=== PATIENT | female | born 1970 ===

== ENCOUNTER 2023-08-24 14:19 | Outpatient (CLI) | payer BC, SELFPAY ==
[2023-08-24 18:08] LABS: Hematocrit 43.1 % (37.0-47.0); Hemoglobin 14.6 g/dL (12.0-15.0); Mean Corpuscular HGB Conc 33.9 g/dl (32-36); Mean Corpuscular Hemoglobin 31.7 pg (26-34); Mean Corpuscular Volume 93.7 fl (80-100); Mean Platelet Volume 10.8 fl (7.4-10.4); Platelet Count Result 369 k/mm3 (150-375); Red Cell Distribution Width 13.2 % (11.5-14.5); White Blood Count 10.8 K/mm3 (4.5-10.0)
[2023-08-24 18:15] LABS: Creatinine Urine 199.9 mg/dL
[2023-08-24 18:20] LABS: MALB Creatinine Ratio 3.9 mg/g (0-30); Microalbumin Urine Random 7.8 mg/L (0-16.7)
[2023-08-24 18:38] LABS: Erythrocyte Sedimentation Rate 9 mm/hr (0-20)
[2023-08-24 18:41] LABS: Vitamin D 25 Hydroxy 94.3 ng/mL
[2023-08-24 20:56] LABS: Alanine Aminotransferase 18 U/L (6-35); Albumin Level 4.7 g/dL (3.5-5.1); Alkaline Phosphatase 44 U/L (38-126); Anion Gap 11 mmol/L (4-12); Aspartate Amino Transferase 42 U/L (14-36); Bilirubin,Total 0.5 mg/dL (0.2-1.3); Blood Urea Nitrogen 17 mg/dL (7-17); Calcium 9.8 mg/dL (8.4-10.2); Carbon Dioxide 26 mmol/L (22-30); Chloride 100 mmol/L (98-107); Cholesterol 236 mg/dL (0-200); Estimated Glomerular Filt Rate > 60; Glucose 108 mg/dL (65-110); HDL Direct 55 mg/dL; Potassium 4.1 mmol/L (3.4-5.0); Sodium 137 mmol/L (137-145); Triglycerides 201 mg/dL (<150)
[2023-08-24 21:04] LABS: Hemoglobin A1C 5.5 % (<5.7)
[2023-08-24 21:07] LABS: LDL Cholesterol Direct 148 mg/dL
[2023-08-24 21:24] LABS: Thyroid Stimulating Hormone < 0.015 uIU/mL (0.465-4.680)
[2023-08-24 22:01] LABS: Folic Acid > 20.0 ng/mL (2.76->20); Vitamin B12 > 1000.0 pg/mL (239-931)
== END 2023-08-24 14:20 | disposition home or self-care (01) ==
LOC: ANHBWCLAB 14:20
PROVIDERS: PCP Nurse Practitioner Adult Health; Visit Provider Nurse Practitioner Adult Health
DX: E11.9 Type 2 diabetes mellitus without complications (principal); M25.50 Pain in unspecified joint; Z13.9 Encounter for screening, unspecified; E55.9 Vitamin D deficiency, unspecified; E07.9 Disorder of thyroid, unspecified
CPT/HCPCS: 36415; 80053; 80061; 82043; 82306; 82565; 82607; 82746; 83036; 84443; 85027; 85652

== ENCOUNTER 2024-02-29 15:17 | Outpatient (CLI) | payer BC, SELFPAY ==
--- OUTSIDE RECORDS SUMMARY | 2024-03-02 19:41 | XMS_ITS ---
Author Organization [facility] Address [address] [place] [address] Care Team Providers Care Clock Maker Name Role Phone Kelsey Bernard Primary Care Provider REASON FOR VISIT REFILL Encounters Encounter Location Date Provider Diagnosis [facility], [facility] - Kelsey Bernard [address] [place] [address] 02/07/2024 Kelsey Bernard Plan Of Treatment No Information Progress Notes * Laila ZIMMERDOB: [birth year] (53 yo F)Acc No.[id number]:02/07/2024 Patient:?Laila ZIMMER :1970???Age:53 Y???Sex:Female Phone: Address:[facility] [place] [address] * true * Date:? Generated for Printi ng/Fakimmieg/eTransmitting on:?03/02/2024 07:41 PM [employer]ITION SERVICES WORKER
--- OUTSIDE RECORDS SUMMARY | 2024-03-02 19:41 | XMS_ITS | Data Portability ---
Author Organization [facility], Main Office Address [address] [place] [address] Assessment No assessment recorded. Plan of Treatment Reminders Order Date Submit Date Provider Last Modified By Organization Details Last Modified Time Details Appointments None recorded. Lab urinalysis, dipstick 2022 023 [facility] [address], [place], [address], 3 14:45:46 vitamin B12, serum 2023 024 [email or web address] Not available 4 08:17:01 folate, serum 2023 024 [email or web address] Not available 4 08:17:01 vitamin D, 25-hydroxy, total, serum 2023 024 [email or web address] Not available 4 08:17:02 HbA1c (hemoglobin A1c), blood 2023 024 [email or web address] Not available 4 08:17:01 lipid panel, serum 2023 024 [email or web address] Not available 4 08:17:01 CMP, serum or plasma 2023 024 [email or web address] Not available 4 08:17:01 CK (creatine kinase), total, serum 2023 024 [email or web address] Not available 4 08:17:01 TSH, serum or plasma 2023 024 [email or web address] Not available 4 08:17:00 Referral None recorded. Procedures None recorded. Surgeries None recorded. Imaging XR, chest, 2 view 2022 023 [facility] [address] , [place], [address], 3 15:54:43 MAMMO, screening, digital, bilateral 2023 024 [email or web address] [address] [facility] [address] , [place], [address], 4 09:49:37 Medication Orders albuterol sulfate HFA 90 mcg/actuati on aerosol inhaler 2022 023 [id number], [address], [place], [address], 3 12:48:34 Zithromax Z-Amado 250 mg tablet 2022 023 [id number], [address], [place], [address], 4 12:15:23 Ozempic 0.25 mg or 0.5 mg (2 mg/3 mL) subcutaneou s pen injector 2022 023 [id number], [address], [place], [address], 3 12:47:45 Patient TargetsNo targets recorded. Patient InstructionsNo instructions recorded. Reason for Referral None Reported. Results Created Date Observation Date Name Description Value Unit Range Abnormal Flag Note LastModifiedBy Organization Detail LastModifiedTime 12/24/1912/23/2022 urina lysis , dipst ick Leukocytes (reference range: negative hong/??l) Negati ve Not Available [facility] [address], [place], [address], 12/23/2022 12:50:46 12/24/19 23 12/23/2022 urina lysis , dipst ick Nitrite (reference rage: negative mg/dl) negati ve Not Available [address] [address], [place], [address], 12/23/2022 12:50:46 12/24/19 23 12/23/2022 urina lysis , dipst ick Urobilinogen (reference range: 0.2-1 mg/dl) 0.2 Not Available [address], [place], [address], 12/23/2022 12:50:46 12/24/19 23 12/23/2022 urina lysis , dipst ick Protein (reference range: negative mg/dl) Negati ve Not Available [address], [place], [address], 12/23/2022 12:50:46 12/24/19 23 12/23/2022 urina lysis , dipst ick pH (reference range: 5-7) 7.0 Not Available [address] [place], [place], [address], 12/23/2022 12:50:46 12/24/19 23 12/23/2022 urina lysis , dipst ick Blood (reference range: negative Wiley/??l) Negati ve Not Available [address] [place], [place], [address], 12/23/2022 12:50:46 12/24/19 23 12/23/2022 urina lysis , dipst ick Specific Eugene (reference range: 1.005-1.030) 1.020 Not Available [address] [place], [place], [address], 12/23/2022 12:50:46 12/24/19 23 12/23/2022 urina lysis , dipst ick Ketone (reference range: negative mg/dl) Negati ve Not Available [address], [place], [address], 12/23/2022 12:50:46 12/24/19 23 12/23/2022 urina lysis , dipst ick Bilirubin (reference range: negative mg/dl) Negati ve Not Available [address], [place], [address], 12/23/2022 12:50:46 12/24/19 23 12/23/2022 urina lysis , dipst ick Glucose (reference range: negative mg/dl) Negati ve Not Available [address], [place], [address], 12/23/2022 12:50:46 12/24/19 23 12/23/2022 urina lysis , dipst ick Appearance Clear Not Available [address] [address], [place], [address], 12/23/2022 12:50:46 12/24/19 23 12/23/2022 urina lysis , dipst ick Color Yellow Not Available [address] [address], [place], [address], 12/23/2022 12:50:46 10/26/19 24 10/26/2023 URINE DRUG SCREE N amphetamines NEGATI VE Amphe tamin e cut off 500 ng/mL Not Available [facility] (Lab) [address] [facility], [place], [address], 10/26/2023 22:26:36 10/26/19 24 10/26/2023 URINE DRUG SCREE N barbiturates NEGATI VE Cynthia turat e cut off 200 ng/mL Not Available [facility] (Lab) [address] [place], [address], 10/26/2023 22:26:36 10/26/19 24 10/26/2023 URINE DRUG SCREE N benzodiazepi karen POSITI VE abnormal Benzo diaze pine cut off 200 ng/mL Not Available [facility] (Lab) [address] [place], [address], 10/26/2023 22:26:36 10/26/19 24 10/26/2023 URINE DRUG SCREE N cocaine NEGATI VE Cocai ne metab olite cut off 150 ng/mL Not Available [facility] (Lab) [address] [place], [address], 10/26/2023 22:26:36 10/26/19 24 10/26/2023 URINE DRUG SCREE N methadone NEGATI VE Metha done cutof f 300 ng/mL . Not Available [facility] (Lab) [address] [place], [address], 10/26/2023 22:26:36 10/26/19 24 10/26/2023 URINE DRUG SCREE N opiates POSITI VE abnormal Opiat e cut off 300 ng/mL Not Available [facility] (Lab) [address] [place], [address], 10/26/2023 22:26:36 10/26/19 24 10/26/2023 URINE DRUG SCREE N phencyclidin e NEGATI VE PCP cut off 25 ng/mL Not Available [facility] (Lab) [address] [place], [address], 10/26/2023 22:26:36 10/26/19 24 10/26/2023 URINE DRUG SCREE N marijuana POSITI VE abnormal Marij uana cut off 50 ng/mL ANY POSIT ARIANNE RESUL TS REPOR ERIC ARE UNCON FIRME D, AND SUCH, SHOUL D BE USED FOR MEDIC AL TREAT MENT PURPO SES ONLY. Not Available [facility] (Lab) [address] [facility], [place], [address], 10/26/2023 22:26:36 08/16/1908/15/2022 CT, abdom en + pelvi s, w/o contr ast No observ ation record ed. [email or web address] [facility] [address], [place], [address], 08/17/2022 10:02:51 10/01/19 XR, chest , 2 view [facility] [address] [facility] [place] [address] [phone] Patien t Name: PRASHANT MORTON Shruthi Access ion #: [id number] Sex: F : 1970 1 Dictat ed By: Bishop Ornelas Attend ing Physic agueda: SANDI DALE Orderi ng Physic agueda: SANDI DALE Exam Date: 2022 11:57 AM Exam Name: XR CHEST 2V Admitt ing Diagno sis(es ): EXAM: XR CHEST 2V INDICA TION: 52 years old Female wheeze COMPAR ADRIANA: None. FINDIN GS: The cardia c silhou ette is normal . There is no pulmon fara edema. The lungs are clear. There is no pneumo john. There is no pneumo thorax . There is no abnorm al foreig n body. IMPRES ANGEL: There is no acute abnorm ality. Electr onical ly Signed by: Bishop Ornelas at 2022 14:52: 26 PM Page 1 [email or web address] [facility] (Imaging) [address] [facility], [place], [address], 09/30/2022 17:27:32 10/01/1909/30/2022 XR, chest , 2 view No observ ation record ed. [email or web address] [facility] [address] [place] [address] , [place], [address], 10/01/2022 09:04:52 05/14/19 24 05/14/2023 XR, chest No observ ation record ed. [email or web address] [address], [address], 05/20/2023 10:41:06 Result Notes None recorded. Problems Name Problem SNOMED Code Status Onset Date Resolution Date Notes Provider Name and Address Organization Details Recorded Time Disorder of shoulder 944201972 Active Not Available [facility] 3 04:14:21 Chronic back pain 588523772 Active Not Available [facility] 3 04:14:21 Backache with radiating pain 721960758 Active Not Available [facility] 3 04:14:21 Congenital hypothyroi dism 743790102 Active Not Available [facility] 3 04:14:21 Chronic anxiety 637808503 Active Not Available [facility] 3 04:14:21 Thyroid nodule 246735546 Active 2022 Not Available [facility] 3 04:14:21 Headache 15916785 Active Not Available [facility] 3 04:14:21 Muscle weakness 91345323 Active Not Available [facility] 3 04:14:21 Mixed hyperlipid emia 689762132 Active Not Available [facility] 3 04:14:21 Shoulder joint pain 751799954 Active Not Available [facility] 3 04:14:21 Eruption 057565701 Active Not Available [facility] 3 04:14:21 Chronic low back pain 132352033 Active Not Available [facility] 3 04:14:21 Low back pain 519117099 Active Not Available [facility] 3 04:14:21 Myalgia/my ositis - multiple 415920670 Active Not Available [facility] 3 04:14:21 Numbness of upper limb 275331513 Active Not Available [employer] 3 04:14:21 Peripheral nerve disease 315890263 Active Not Available [facility] 3 04:14:21 Type 2 diabetes mellitus without complicati on 314343822 Active 2021 Not Available [facility] 3 04:14:21 Multiple joint pain 23725102 Active Not Available [facility] 3 04:14:21 Ulnar neuropathy 174872197 Active Not Available [facility] 3 04:14:21 Chronic pain syndrome 178380883 Active Not Available [facility] 3 04:14:21 Neuropathy 778452615 Active Not Available [facility] 3 04:14:21 Peripheral vascular disease 127002740 Active Not Available [facility] 3 04:14:21 Hypothyroi dism 01120007 Active Not Available [facility] 3 04:14:21 Uncontroll ed type 2 diabetes mellitus 823105018 Active 2021 Not Available [facility] 3 04:14:22 Shoulder pain 89724172 Active Not Available [facility] 3 04:14:22 Anxiety 08625434 Active Not Available [facility] 3 04:14:22 Cough 93248761 Active Not Available [facility] 3 04:14:22 Hyperlipid emia 71069814 Active Not Available [facility] 3 04:14:22 Disorder of bursa of shoulder region 21513209 Active Not Available [facility] 3 04:14:22 Carpal tunnel syndrome 49776438 Active Not Available [facility] 3 04:14:22 Allergic rhinitis 49155070 Active Not Available [facility] 3 04:14:22 Brachial neuritis 50178034 Active Not Available [facility] 3 04:14:22 Skin sensation disturbanc e 73514863 Active Not Available [facility] 3 04:14:22 Fatigue 46976327 Active Not Available [facility] 3 04:14:22 Primary fibromyalg ia syndrome 18948081 Active Not Available [facility] 3 04:14:22 Abdominal pain 30755200 Active 2022 Not Available [employer] 3 04:14:21 Vaginitis 88417162 Active 2022 Not Available [facility] 3 04:14:21 Epigastric pain 99695032 Active 2022 Not Available [facility] 3 04:14:22 Persistent insomnia 007722161 Active 2022 Not Available [facility] 3 04:14:21 Acute urinary tract infection 026592011 Active 2022 Not Available [facility] 3 04:14:21 Pain of bilateral hands 1283257586804 9109 Active 2022 Not Available [facility] 3 04:14:21 Vitamin D deficiency 73401337 Active 2022 Not Available [facility] 3 04:14:21 Menopausal symptom 16478417 Active 2022 Not Available [facility] 3 04:14:21 Hematochez ia 418464420 Active 2022 Not Available [facility] 3 04:14:21 Candidiasi s of mouth 68815428 Active 2022 Not Available [facility] 3 04:14:22 Acute bronchitis with bronchospa sm 90745608 Active 2022 Not Available [facility] 3 04:14:22 Ulcerative colitis 48675534 Active 2022 Not Available [facility] 3 04:14:22 Acute sinusitis 67966041 Active 2022 Sandi Martinez MD [address] [place] [address], [place], [address] , [facility] [employer] [facility] 3 09:30:10 Administra tion of influenza vaccine Active 2022 MARY CARMEN Naylor [address], [place], [address] , [facility] [employer] [facility] 3 15:36:09 Nausea and vomiting 36545763 Active 2022 Sandi Martinez MD [address], [place], [address] , [employer] 3 12:43:34 Rheumatoid arthritis 19021940 Active 2022 Sandi Martinez MD [address], [place], [address] , [employer] 3 12:44:45 Urinary symptoms 071734900 Active 2022 Sandi Martienz MD [address], [place], [address] , [employer] 3 12:50:43 Administra tion of Varicella- zoster vaccine Active 2023 MARY CARMEN Naylor [address], [place], [address] , [employer] 4 12:39:15 Screening for malignant neoplasm of breast Active 2023 MARY CARMEN Naylor [address], [place], [address] , [employer] 4 12:41:02 At increased risk for nutritiona l problem 040307568 Active 2023 MARY CARMEN Naylor [address], [place], [address] , [employer] 4 12:45:38 Problem Notes None recorded. Procedures Surgical History Date Name Laterality Status Provider Name and Address Organization Details Recorded Time 10/01/19 Nebulizer Treatment completed Sandi Martinez MD [address], [place], [address], [employer] 09/30/2022 20:17:07 Carpal tunnel completed Not Available [facility] 04/08/2022 09:13:59 Cholecystectomy completed Not Available [facility] 04/08/2022 09:13:59 delivery completed Not Available [facility] 04/08/2022 09:13:59 Imaging Results Imaging Date Name Status LastModified by Organiz ation Details LastModified Time 08/15/2022 CT, abdomen + pelvis, w/o contrast completed [email or web address] [facility] [address], [place], [address], 08/17/2022 10:02:51 09/30/2022 XR, chest, 2 view completed [email or web address] [facility] ([facility]) [address] [place], [address], 09/30/2022 17:27:32 09/30/2022 XR, chest, 2 view completed [address], [place], [address], 10/01/2022 09:04:52 05/14/2023 XR, chest completed [email or web address] [place], [address], 05/20/2023 10:41:06 Procedure Notes None recorded. Medical Equipment None Reported. Allergies Allergen ID Allergen Name Allergen Category Reaction Reaction Severity Criticality Documentation Date Start Date Code Code System Note Provider Name and Address Organization Details Recorded Time 68039 cyclobenz aprine hydrochlo ride medicatio n rash Not available Not available 04/08/2022 97047 RxNorm Not Available [facility] 3 09:20:05 97468 Cipro medicatio n nausea moderate Not available 04/08/2022 63530 3 RxNorm Not Available [facility] 3 09:20:05 Medications Name Sig Start Date Stop Date Status Note LastModified by Organization Details LastModified Time penicilli n V potassium 250 mg tablet TAKE 1 TABLET BY MOUTH EVERY 6 HOURS WITH MEALS FOR 10 DAYS 06/01 completed Not Available Not Available Not Available medroxypr ogesteron e 10 mg tablet Take 1 tablet every day by oral route at bedtime for 10 days. 01/17 completed Not Available Not Available Not Available fluconazo le 100 mg tablet Take 1 tablet every day by oral route. active Not Available Not Available No t Available buspirone 5 mg tablet Take 1 tablet twice a day by oral route. active Not Available Not Available No t Available nystatin 100,000 unit/mL oral suspensio n Take 5 mL 4 times a day by oral route. active Not Available Not Available No t Available prednison e 10 mg tablet TAKE 4TABS BY MOUTH DAILY X3DAYS, 3TABS DAILY X3DAYS, 2TABS DAILY X3DAYS, 1TAB DAILY X3DAYS 03/26 completed Not Available Not Available Not Available doxycycli ne hyclate 100 mg capsule Take 1 capsule twice a day by oral route. active Not Available Not Available No t Available atorvasta tin 20 mg tablet TAKE 1 TABLET BY MOUTH EVERY DAY 10/01 completed Not Available Not Available Not Available sulfasala zine 500 mg tablet TAKE 1 TABLET BY MOUTH TWICE A DAY FOR 30 DAYS 04/29 completed Not Available Not Available Not Available clindamyc in HCl 300 mg capsule TAKE 1 CAPSULE BY MOUTH EVERY 6 HOURS. active Not Available Not Available No t Available trazodone 50 mg tablet TAKE 1 TABLET BY MOUTH EVERY DAY 2022 active Not Available Not Available Not Avai lable azithromy freddie 250 mg tablet TAKE 2 TABLETS BY MOUTH TODAY, THEN TAKE 1 TABLET DAILY FOR 4 DAYS 06/01 completed Not Available Not Available Not Available ibuprofen 800 mg tablet TAKE 1 TABLET BY MOUTH THREE TIMES A DAY NEEDED 2023 active Not Available Not Available Not Avai lable tizanidin e 4 mg tablet TAKE 1 TABLET BY MOUTH EVERY 6 HOURS NEEDED 08/25 completed Not Available Not Available Not Available fluconazo le 150 mg tablet TAKE 1 TABLET BY MOUTH FOR 1 DOSE active Not Available Not Available No t Available doxepin 25 mg capsule TAKE 1 CAPSULE BY MOUTH EVERYDAY AT BEDTIME active Not Available Not Available No t Available valacyclo vir 1 gram tablet 1 po daily active Not Available Not Available No t Available hydrocodo ne 5 mg-acetam inophen 325 mg tablet TAKE 1 2 TABLETS BY MOUTH ONCE EVERY 4 6 HOURS NEEDED active Not Available Not Available No t Available minocycli ne 100 mg capsule active Not Available Not Available Not Available meloxicam 15 mg tablet TAKE 1 TABLET BY MOUTH EVERY DAY 06/11 completed Rheumato logist d/c Not Available Not Available Not Available ondansetr on HCl 4 mg tablet TAKE 1 TABLET BY MOUTH EVERY 8 HOURS NEEDED active Not Available Not Available No t Available prednison e 20 mg tablet TAKE 1 TABLET BY MOUTH EVERY DAY active Not Available Not Available No t Available medroxypr ogesteron e 5 mg tablet TAKE 1 TABLET BY MOUTH EVERY DAY 2023 active Not Available Not Available Not Avai lable prednison e 5 mg tablet TAKE 1 TABLET BY MOUTH EVERY DAY active Not Available Not Available No t Available penicilli n V potassium 500 mg tablet TK 1 T PO QID TAT 04/20 completed Not Available Not Available Not Available topiramat e 25 mg tablet TAKE 2 TABLETS BY MOUTH TWICE A DAY active Not Available Not Available No t Available metronida zole 500 mg tablet TAKE 1 TABLET BY MOUTH 3 TIMES DAILY FOR 14 DAYS. 06/01 completed Not Available Not Available Not Available phentermi ne 37.5 mg tablet TAKE 1 TABLET BY MOUTH EVERY DAY active Not Available Not Available No t Available acetamino phen 300 mg-codein e 30 mg tablet Take 1 tablet every 4-6 hours by oral route as needed. 01/17 completed Not Available Not Available Not Available chlorthal idone 25 mg tablet Take 1 tablet every day by oral route. 06/11 completed Not Available Not Available Not Available amlodipin e 5 mg tablet TAKE 1 TABLET BY MOUTH EVERY DAY 03/26 completed Not Available Not Available Not Available ciproflox acin 500 mg tablet Take 1 tablet every 12 hours by oral route for 5 days. 09/30 completed Not Available Not Available Not Available sulfameth oxazole 800 mg-trimet hoprim 160 mg tablet TAKE 1 TABLET BY MOUTH EVERY 12 HOURS FOR 5 DAYS 03/26 completed Not Available Not Available Not Available hydrocodo ne 10 mg-acetam inophen 325 mg tablet TAKE 1 TABLET BY MOUTH EVERY 8 HOURS NEEDED FOR PAIN active Not Available Not Available No t Available leflunomi de 20 mg tablet TAKE 1 TABLET BY MOUTH EVERY DAY active Not Available Not Available No t Available tramadol 50 mg tablet TAKE 1 TO 2 TABLETS BY MOUTH EVERY 6 HOURS NEEDED 06/11 completed Not Available Not Available Not Available amitripty line 50 mg tablet TAKE 1 TABLET BY MOUTH DAILY AT BEDTIME 04/20 completed Not Available Not Available Not Available triamtere ne 37.5 mg-hydroc hlorothia zide 25 mg capsule active Not Available Not Available Not Available amoxicill in 500 mg tablet Take 1 tablet every 8 hours by oral route for 10 days. 03/26 completed Not Available Not Available Not Available simvastat in 40 mg tablet TAKE 1 TABLET BY MOUTH EVERY DAY 06/22 completed Not Available Not Available Not Available alprazola m 0.5 mg tablet TAKE 1 TABLET BY MOUTH EVERY DAY active Not Available Not Available No t Available amoxicill in 875 mg tablet TAKE 1 TABLET BY MOUTH EVERY 12 HOURS 06/01 completed Not Available Not Available Not Available alprazola m 0.25 mg tablet TAKE 1 TABLET BY MOUTH THREE TIMES A DAY NEEDED active Not Available Not Available No t Available estradiol 1 mg tablet TAKE 1 TABLET BY MOUTH EVERY DAY 08/25 completed Not Available Not Available Not Available methotrex ate sodium 2.5 mg tablet TAKE 6 TABLETS BY MOUTH ONCE A WEEK FOR 30 DAYS 03/26 completed Not Available Not Available Not Available amitripty line 10 mg tablet active Not Available Not Available No t Available meclizine 25 mg tablet Take 1 tablet 3 times a day by oral route. 03/26 completed Not Available Not Available Not Available Soma 350 mg tablet Take 1 tablet 4 times a day by oral route as needed. 06/22 completed Not Available Not Available Not Available benzonata te 100 mg capsule Take 1 capsule 3 times a day by oral route. 04/28 completed Not Available Not Available Not Available levothyro xine 50 mcg tablet TAKE 1 TABLET BY MOUTH EVERY DAY active Not Available Not Available No t Available hydrocodo ne 7.5 mg-acetam inophen 325 mg tablet TAKE 1 TABLET BY MOUTH EVERY 6 HOURS 06/01 completed Not Available Not Available Not Available pantopraz ole 40 mg tablet,de layed release TAKE 1 TABLET BY MOUTH EVERY DAY active Not Available Not Available No t Available cyanocoba zachery (vit B-12) 1,000 mcg/mL injection solution INEJECT 1 ML UNDER THE SKIN IN THE MORNING ONCE WEEKLY active Not Available Not Available No t Available gabapenti n 300 mg capsule 1 po TID active Not Available Not Available Not Available omeprazol e 20 mg capsule,d elayed release TAKE 1 CAPSULE BY MOUTH EVERY DAY active Not Available Not Available No t Available folic acid 1 mg tablet TAKE 1 TABLET BY MOUTH EVERY DAY active Not Available Not Available No t Available etodolac 400 mg tablet TAKE 1 TABLET BY MOUTH TWICE A DAY FOR 30 DAYS 03/26 completed Not Available Not Available Not Available monteluka st 10 mg tablet TAKE 1 TABLET BY MOUTH EVERY DAY active Not Available Not Available No t Available hydroxyzi ne HCl 25 mg tablet Take 1 tablet 4 times a day by oral route. active Not Available Not Available No t Available hydrocodo ne 5 mg-acetam inophen 500 mg tablet active Not Available Not Available Not Available hydrochlo rothiazid e 25 mg tablet TAKE 1 TABLET BY MOUTH ONCE DAILY active Not Available Not Available No t Available zolpidem 5 mg tablet TAKE 1 TABLET BY MOUTH EVERYDAY AT BEDTIME *15 TABS/25 DAYS PER INSURANC E* 03/26 completed Not Available Not Available Not Available estradiol 0.5 mg tablet TAKE 1 TABLET BY MOUTH EVERY DAY 2023 active Not Available Not Available Not Avai lable clobetaso l 0.05 % topical ointment APPLY THIN COAT TO AFFECTED AREA TWICE A DAY UNTIL IRRITATI ON RESOLVED , THEN NEEDED active Not Available Not Available No t Available nystatin 100,000 unit/gram topical powder 06/11 completed Not Available Not Available Not Available ibuprofen 600 mg tablet TAKE 1 TABLET BY MOUTH 3 TIMES A DAY 07/06 completed Not Available Not Available Not Available levofloxa freddie 500 mg tablet TAKE 1 TABLET BY MOUTH DAILY FOR 14 DAYS 09/30 completed Not Available Not Available Not Available methylpre dnisolone 4 mg tablets in a dose pack TAKE 6 TABLETS ON DAY 1 DIRECTED ON PACKAGE AND DECREASE BY 1 TAB EACH DAY FOR A TOTAL OF 6 DAYS 12/27 completed Not Available Not Available Not Available albuterol sulfate HFA 90 mcg/actua tion aerosol inhaler INHALE 2 PUFFS BY MOUTH EVERY 4 HOURS active Not Available Not Available No t Available Unithroid 75 mcg tablet TAKE 1 TABLET BY MOUTH EVERY DAY IN THE MORNING active Not Available Not Available No t Available hydrocodo ne 10 mg-acetam inophen 650 mg tablet TAKE 1-2 TABLETS BY MOUTH EVERY 4-6 HOURS active Not Available Not Available No t Available losartan 100 mg tablet 06/01 completed Not Available Not Available Not Available metformin ER 500 mg tablet,ex tended release 24 hr TAKE 2 TABLETS BY MOUTH EVERY DAY 03/26 completed Not Available Not Available Not Available cholecalc iferol (vitamin D3) 125 mcg (5,000 unit) capsule TAKE 1 CAPSULE BY MOUTH EVERY DAY IN THE MORNING 03/26 completed Not Available Not Available Not Available phentermi ne 37.5 mg capsule one po daily active Not Available Not Available No t Available diazepam 5 mg tablet Take 1 tablet 1 hour prior to MRI, if needed, take 2nd tablet 15 minutes prior 05/04 completed Not Available Not Available Not Available metoclopr amide 10 mg tablet 03/26 completed Not Available Not Available Not Available amoxicill in 875 mg-potass ium clavulana te 125 mg tablet Take 1 tablet every 12 hours by oral route. 03/26 completed Not Available Not Available Not Available Estrace 0.01% (0.1 mg/gram) vaginal cream 1 gram per vagina 2x/week 04/20 completed Not Available Not Available Not Available escitalop emile 10 mg tablet TAKE 1 TABLET BY MOUTH EVERY DAY 08/14 completed Not Available Not Available Not Available ezetimibe 10 mg tablet TAKE 1 TABLET BY MOUTH EVERY DAY 2023 active Not Available Not Available Not Avai lable minocycli ne 100 mg tablet TAKE 1 TABLET BY MOUTH EVERY 12 HOURS active Not Available Not Available No t Available Premarin 0.45 mg tablet Take 1 tablet every day by oral route. 07/06 completed Not Available Not Available Not Available rosuvasta tin 10 mg tablet TAKE 1 TABLET BY MOUTH ONCE DAILY. REPLACES SIMVASTA TIN. 01/02 completed Not Available Not Available Not Available melatonin 1 mg tablet Take by oral route. 08/25 completed Not Available Not Available Not Available Prempro 0.3 mg-1.5 mg tablet Take 1 tablet every day by oral route. 06/20 completed Not Available Not Available Not Available nitrofura ntoin monohydra te/macroc rystals 100 mg capsule Take 1 capsule every 12 hours by oral route for 7 days. 12/08 completed Not Available Not Available Not Available Cymbalta 30 mg capsule,d elayed release Take 1 capsule every day by oral route. 04/18 completed Not Available Not Available Not Available ketorolac 60 mg/2 mL intramusc ular syringe Inject 2 mL every day by intramus cular route. 12/08 completed Not Available Not Available Not Available Lyrica 50 mg capsule Take 1 capsule 3 times a day by oral route. active Not Available Not Available No t Available Lyrica 75 mg capsule active Not Available Not Available Not Available Lyrica 100 mg capsule TAKE 1 CAPSULE BY MOUTH THREE TIMES DAILY active Not Available Not Available No t Available losartan 100 mg-hydroc hlorothia zide 12.5 mg tablet active Not Available Not Available No t Available biotin 5000mg 03/26 completed Not Available Not Available Not Available tramadol ER 100 mg tablet,ex tended release 24 hr TAKE 1 TABLET BY MOUTH EVERY 12 HOURS active Not Available Not Available No t Available hydrochlo rothiazid e 12.5 mg tablet 06/01 completed Not Available Not Available Not Available budesonid e-formote rol HFA 160 mcg-4.5 mcg/actua tion aerosol inhaler TAKE 2 PUFFS BY MOUTH TWICE A DAY 2023 active Not Available Not Available Not Avai lable cholecalc iferol (vitamin D3) 1,250 mcg (50,000 unit) capsule TAKE 1 CAPSULE BY MOUTH ONCE EVERY WEEK. 2024 active Not Available Not Available Not Avai lable mesalamin e ER 0.375 gram capsule,e xtended release 24 hr TAKE 4 CAPSULES BY MOUTH DAILY active Not Available Not Available No t Available Savella 50 mg tablet TAKE 1 TABLET BY MOUTH TWICE A DAY 02/27 completed Not Available Not Available Not Available cholecalc iferol (vitamin D3) 125 mcg (5,000 unit) tablet TAKE 1 TABLET BY MOUTH EVERY DAY IN THE MORNING 03/26 completed Not Available Not Available Not Available Tirosint 75 mcg capsule Take 1 capsule every day by oral route in the morning for 90 days. active Not Available Not Available No t Available BD Insulin Syringe Ultra-Fin e 1 mL 31 gauge x 06/23 USE DIRECTED . ONCE WEEKLY active Not Available Not Available No t Available Hysingla ER 60 mg tablet, crush resistant , extended release Take 1 tablet every 24 hours by oral route. 09/01 completed Not Available Not Available Not Available naloxone 4 mg/actuat ion nasal spray active Not Available Not Available Not Available Ozempic 1 mg/dose (2 mg/1.5 mL) subcutane ous pen injector Inject 1 mg every week by subcutan eous route for 30 days. 07/25 completed Not Available Not Available Not Available Ozempic 0.25 mg or 0.5 mg (2 mg/1.5 mL) subcutane ous pen injector INJECT 0.5MG UNDER THE SKIN ONCE A WEEK FOR 28 DAYS 04/29 completed Not Available Not Available Not Available Dexcom G6 Sensor device USE TO CHECK BLOOD SUGAR 6 TIMES A DAY 2023 active Not Available Not Available Not Avai lable Dexcom G6 Touch Up Carver 03/26 completed Not Available Not Available Not Available Dexcom G6 Transmitt er device active Not Available Not Available No t Available Humira(CF ) Pen 40 mg/0.4 mL subcutane ous kit 06/01 completed Not Available Not Available Not Available Rinvoq 15 mg tablet,ex tended release active Not Available Not Available Not Available FreeStyle Felicia 2 Sensor kit USE DIRECTED . 03/26 completed Not Available Not Available Not Available Ozempic 1 mg/dose (4 mg/3 mL) subcutane ous pen injector INJECT 1 MG UNDER THE SKIN ONCE A WEEK active Not Available Not Available No t Available Ozempic 0.25 mg or 0.5 mg (2 mg/3 mL) subcutane ous pen injector INJECT 0.5 MG ONE TIME PER WEEK active Not Available Not Available No t Available Vitals Date Recorded Body height Body mass index (BMI) Body weight Body temperature Heart rate Oxygen saturation Oxygen saturation in Arterial blood by Pulse oximetry Systolic blood pressure Diastolic blood pressure Provider Name and Address Organization Details Last Updated DateTime 3 162.56 cm 34.5 kg/m2 89828.0 7 g 96.4 [degF] 99 /min 98 % 98 % 126 mm[Hg] 80 mm[Hg] PRUDENCIO Brown [place] [facility] [place] [facility] 3 11:47:33 Date Recorded Body height Body mass index (BMI) Body weight Body temperature Heart rate Oxygen saturation Oxygen saturation in Arterial blood by Pulse oximetry Systolic blood pressure Diastolic blood pressure Provider Name and Address Organization Details Last Updated DateTime 3 162.56 cm 34.2 kg/m2 84343.8 8 g 97.5 [degF] 80 /min 98 % 98 % 122 mm[Hg] 78 mm[Hg] Angelika galvan CMA [facility] [employer] [facility] 3 12:23:58 Date Recorded Body height Body mass index (BMI) Body weight Body temperature Heart rate Oxygen saturation Oxygen saturation in Arterial blood by Pulse oximetry Systolic blood pressure Diastolic blood pressure Provider Name and Address Organization Details Last Updated DateTime 3 162.56 cm 34 kg/m2 96319.2 9 g 97.9 [degF] 92 /min 98 % 98 % 124 mm[Hg] 62 mm[Hg] Le Nash MA [facility] [employer] 3 12:33:41 Date Recorded Body height Body mass index (BMI) Body weight Body temperature Respiratory rate Heart rate Oxygen saturation Oxygen saturation in Arterial blood by Pulse oximetry Systolic blood pressure Diastolic blood pressure Provider Name and Address Organization Details Last Updated DateTime 4 162.56 cm 34.8 kg/m2 85395.2 5 g 97.6 [degF] 16 /min 77 /min 98 % 98 % 120 mm[Hg] 86 mm[Hg] Annalee Delgadillo RN [facility] [employer] [facility] 4 12:20:15 Social History Question Answer Notes LastModified by Organizat ion Details LastModified Time Tobacco Smoking Status Unknown If Ever Smoked Not Available [facility] 04/08/2022 09:13:55 What Is Your Level Of Alcohol Consumption? None [id number] Information not available 04/08/2022 In The 14 Days Before Symptom Onset, Have You Had Close Contact With A Laboratory-confirm ed COVID-19 While That Case Was Ill? No [id number] Information not available 04/08/2022 In The 14 Days Before Symptom Onset, Have You Had Close Contact With A Person Who Is Under Investigation For COVID-19 While That Person Was Ill? No [id number] Information not available 04/08/2022 What Was The Date Of Your Most Recent Tobacco Screening? 06/11/2021 [id number] Information not available 04/08/2022 Sex: Unknown Functional Status None recorded. Mental Status None recorded. Family History Relationship Description Onset Age of this Age Resolved Age Notes LastModified by Organization Details LastModified Time Father Heart disease [id number] Not available 04/08/2022 09:14:00 Father Family history of malignant neoplasm [id number] Not available 04/08/2022 09:14:00 Maternal Grandmother Heart disease [id number] Not available 04/08/2022 09:14:00 Mother Heart disease [id number] Not available 04/08/2022 09:14:00 Mother Diabetes mellitus [id number] Not available 04/08/2022 09:14:00 Medical History Condition Response ARTHRITIS Y EYE PROBLEMS Y HEADACHES/MIGRAINES Y OBESITY Y HYPOTHYROIDISM Y DIABETES, TYPE Y HYPERTENSION Y HIGH CHOLESTEROL / HYPERLIPIDEMIA Y Gynecological HistoryNo gynecological history recorded. Obstetrics History GPAL:G 0 P 0 0 0 0 Immunizations Vaccine Type Date Status Note Provider Nam e and Address Organization Details Recorded Time Influenza, split virus, quadrivalent, PF 3 completed MARY CARMEN Naylor [address], [place], [address], [id number] 11/10/2022 14:54:37 zoster recombinant 4 completed MARY CARMEN Naylor [address], [place], [address], [facility] 06/09/2023 15:30:04 Influenza, split virus, trivalent, preservative 4 completed Not Available [facility] 10/02/2022 04:14:24 Influenza, split virus, quadrivalent, PF 2 completed Not Available [facility] 10/02/2022 04:14:24 Influenza, split virus, quadrivalent, PF 1 completed Not Available [facility] 10/02/2022 04:14:24 Influenza, split virus, quadrivalent, PF 0 completed Not Available [facility] 10/02/2022 04:14:24 Influenza, split virus, trivalent, preservative 4 completed Not Available [facility] 10/02/2022 04:14:24 Past Encounters Encounter ID Performer Location Encounter Start Date Encounter Closed Date Diagnosis/Indication Diagnosis SNOMED-CT Code Diagnosis ICD10 Code Diagnosis Note [id number] [facility] [place] [address] [place] [address] 04/18/2020 00:00:00 04/18/2020 14:59:17 [id number] [facility] [place] [address] [place] [address] 05/28/2020 00:00:00 05/29/2020 06:51:42 [id number] [facility] [place] [address] [place] [address] 08/16/2020 00:00:00 08/17/2020 12:38:55 [id number] [facility] [place] [address] [place] [address] 08/22/2020 00:00:00 08/22/2020 21:52:19 [id number] [facility] [place] [address] [place] [address] 08/29/2020 00:00:00 08/30/2020 06:07:17 [id number] [facility] [place] [address] [place] [address] 10/01/2020 00:00:00 10/02/2020 06:26:45 [id number] [facility] [place] [address] [place] [address] 11/01/2020 00:00:00 11/02/2020 11:38:04 [id number] [facility] [place] [address] [place] [address] 12/27/2020 00:00:00 12/27/2020 15:39:14 [id number] [facility] [address] [facility] [address] [place] [address] 06/11/2021 00:00:00 06/11/2021 17:16:01 [id number] [facility] [place] [address] [place] [address] 06/11/2021 00:00:00 06/11/2021 12:39:01 [id number] [facility] [place] [address] [place] [address] 08/14/2021 00:00:00 08/14/2021 19:37:27 [id number] [facility] [address] [place] [address] 08/26/2021 00:00:00 08/26/2021 10:06:53 [id number] [facility] [address] [place] [address] 10/20/2021 00:00:00 10/20/2021 13:30:24 [id number] [facility] [place] [address] [place] [address] 12/18/2021 00:00:00 12/19/2021 06:01:04 [id number] [facility] [place] [address] [place] [address] 03/12/2022 00:00:00 03/13/2022 06:06:03 [id number] Sandi Martinez MD [facility] [place] [address] [place] [address] 04/29/2022 14:11:50 04/29/2022 15:03:00 Chronic pain syndrome 397291844 G89.4 F/u with rheumatolo gist Abdominal pain 52481190 R10.9 [id number] Sandi Martinez MD [facility] [place] [address] [place] [address] 05/20/2022 12:28:48 05/20/2022 12:59:30 Epigastric pain 74465807 R10.13 Persistent insomnia 1919 21113 G47.09 Chronic low back pain 27 1939540 M54.50 Chronic back pain 527805 002 G89.29 Acute urin fara tract infection 127008270 N39.0 Pt is on cipro continue this. [id number] Sandi Martinez MD [facility] [place] [address] [place] [address] 06/01/2022 14:39:35 06/01/2022 15:29:37 Acute urinary tract infection 649493687 N39.0 Pain of bi lateral hands 7035804024 [id number] M79.641 Pending appt with rheumatolo gist [id number] Sandi Martinez MD [facility] [place] [address] [place] [address] 08/31/2022 11:39:29 08/31/2022 12:10:11 Hematochezia 274990328 K92.1 Possible UC Continue flagyl continue prednisone . F/u with GI. Hospital i npatient stay within past 30 days [id number] 106 Z76.89 [id number] Sandi Martinez MD [facility] [place] [address] [place] [address] [place] [address] 09/30/2022 12:16:34 09/30/2022 12:59:33 Acute bronchitis with bronchospasm 23502145 J20.9 Nebulizer treatment given x 1. Continue prednisone 20 mg daily. Ulcerative colitis 08608 004 K51.90 [id number] MARY CARMEN Naylor [facility] [place] [address] [place] [address] 11/09/2022 11:49:32 11/16/2022 14:35:34 Administration of influenza vaccine 04177600 Z23 [id number] Sandi Martinez MD [facility] [place] [address] [place] [address] 12/23/2022 12:28:36 12/23/2022 12:58:45 Nausea and vomiting 57037196 R11.2 D/t ozempic Rheumatoid arthritis 698 57467 M06.9 F/u with rheumatolo gist in 03/03 has an appt. Type 2 fco betes mellitus without complication 600181246 E11.9 Will decrease ozempic to 0.5 mg weekly and see if this helps the nausea Urinary symptoms 3009744 08 R39.9 [id number] MARY CARMEN Naylor [facility] [place] [address] [facility], [place] [address] 06/02/2023 12:07:42 06/02/2023 13:52:01 Primary fibromyalgia syndrome 99719400 M79.7 Rheumatoid arthritis 698 96979 M06.9 Neuropathy 883980671 G62 .9 Administra tion of viral vaccine 60760158 Z23 Screening for malignant neoplasm of breast 599398786 Z12.39 Hypothyroidism 97546304 E03.9 Hyperlipidemia 05644063 E78.5 Type 2 fco betes mellitus without complication 771872993 E11.9 At [facility] risk for nutritional problem 004716104 Z91.89 Health Concerns Section Related Observation LastModified by Organization Detai ls LastModified Time None Recorded Concern Status LastModified by Organization Details LastModified Time None Recorded Advance Directives Directive None Recorded Payers Encounter Date Sequence Insurance Name Policy Number Policy Hendricks Covered Member ID Hendricks Member ID Guarantor Name 08/31/2022 1 [employer] [id number] Romeo Buschtton [id number] Laila D [place] 09/30/2022 1 [place] [id number] Romeo Wen [place] [id number] Laila D [place] 11/09/2022 1 [place] [id number] Romeo Carver [place] [id number] Laila D [place] 12/23/2022 1 [place] [id number] Romeo Buschtton [id number] Laila D [place] 06/02/2023 1 [place] [id number] Romeo Carver Mes[place] [id number] Laila D [place] Notes Date Note Type Note Provider Name and Address Organization Details Recorded Time 08/31/2022 text/html Here today for f /u of hospitalization. Thinks has UC needs a colonoscopy. Had blood in stool and cramping. The pain still comes and goes. Has a little pain. Going to see Dr. Terrazas 09/14/22 who is GI She has a f/u with food cashier. Sandi Martinez MD [address], [place], [address], [employer] 08/31/2022 19:53:27 09/30/2022 text/html Here today c/o coughing. Going on x 8 days. Wheezing x 4 days. Has sob. Chest hurts and getting a pain on right flank pain. Taking 20 mg of steroids daily. Has had pneumonia x 1 Feels tightness in chest. Taking otc meds. Took pseudoephedrine and no help. Sandi Martinez MD [address], [place], [address], [employer] 09/30/2022 20:18:31 12/23/2022 text/html Here today c/o n ausea x 10 days. Teeth are falling out. Has lost 3 teeth in last month. Needs to see dentist. Is using zofran and this helps. Has a colonoscopy in 1 week. Is on 1 mg of ozempic. She thinks is taking too much of ozempic. It is causing her to be sick. She has RA and seeing a food cashier. She is on Humira and is not helping as of yet. Pt has lots of lower and mid back pain. Sandi Martinez MD [address], [place], [address], [employer] 12/23/2022 22:11:03 06/02/2023 text/html sick 2 weeks ,he art rate high , ER anxiety MARY CARMEN Naylor [address], [place], [address], [employer] 06/09/2023 15:31:30 OBGyn Episode No OBEpisode recorded.
--- OUTSIDE RECORDS SUMMARY | 2024-03-02 19:42 | XMS_ITS | Patient Health Record ---
Author Organization [employer] [facility] Address [address] [place] [address] Care Team Providers Care Director Financial Systems Name Role Phone Kelsey Bernard Primary Care Provider Chhaya Calabrese Unavailable [phone] Migration, Provider Unavailable Unavailable Allergies No Known Allergies Reason For Referral Reason Dr. Addison Agustin [address] [place] [address] Referral Organization [facility], [facility] - Kelsey Bernard Referring Provider First Name Chhaya Referring Provider Last Name Guanakito Referring Provider Speciality Family [facility] ctice Referral Priority Routine Medications Medication SIG (Take, Route, Frequency, Duration) Notes Start Date End Date Status Ezetimibe 10 MG for 90 Days Un known Ozempic (0.25 or 0.5 MG/DOSE) 2 MG/3ML INJECT 0.5 MG ONE TIME PER WEEK for 28 Days Unknown predniSONE 5 MG TAKE 1 TABLET BY MOUTH EVERY DAY for 30 Days Unknown ALPRAZolam 0.5 MG for 23 Days Unknown Losartan Potassium-HCTZ 100-12.5 MG TAKE 1 TABLET BY MOUTH EVERY DAY for 30 Days Unknown HYDROcodone-Ibupro fen 10-200 MG 1 tab(s) orally every 4 hours 08/30/2023 Unknown GVOKE HYPOPEN TWO PACK 1 MG/0.2 ML DIRECTED SUBCUTANEOUSLY ONCE for 90 DAYS *Please review for potential replacement for e-prescription and drug interaction check* 08/30/2023 Unknown Unithroid 50 MCG (0.05 MG) for 30 DAYS *Please review and pick correct strength-formulati on from [employer] options. If intended option is not shown, discontinue and re-order from Quick Search* Unknown Folic Acid 1 MG for 90 Days Un known Leflunomide 20 MG for 90 Days Unknown Problems Problem Type SNOMED Code ICD Code Onset Dates Problem Status W/U Status Risk Notes Problem Autoimmune thyroiditis (52447907) Autoimmune thyroiditis (E06.3) Active confirmed Problem Diabetic peripheral neuropathy associated with type 2 diabetes mellitus (7590992632894) Type 2 diabetes mellitus with diabetic neuropathy, unspecified (E11.40) Active confirmed Problem Hypoglycemia due to type 2 diabetes mellitus (185070442358698 ) Type 2 diabetes mellitus with hypoglycemia without coma (E11.649) Active confirmed Problem Rheumatoid arthritis (16638115) Rheumatoid arthritis, unspecified (M06.9) Active confirmed Problem Dysphagia (56102623) Dysphagia, unspecified (R13.10) Active confirmed Problem Unspecified mononeuropathy of bilateral upper limbs (G56.93) Active confirmed Vital Signs Heart Rate 712 /min 08/30/2023 Blood pressure diastolic 73 mm Hg 08/30/2023 Height 62 in 08/30/2023 Blood pressure systolic 127 mm Hg 08/30/2023 Weight 200.0 lbs 08/30/2023 BMI 36.58 kg/m2 08/30/2023 Encounters Encounter Location Date Provider Diagnosis [id number] [place] [address] 12/25/2023 Provider Migration [facility]- Dr. Arndt [address] [place] [address] 08/30/2023 Chhaya Guanakito Rheumatoid arthritis , unspecified M06.9 ; Type 2 diabetes mellitus with diabetic neuropathy, unspecified E11.40 ; Type 2 diabetes mellitus with hypoglycemia without coma E11.649 ; Other fatigue R53.83 ; Autoimmune thyroiditis E06.3 ; Dysphagia, unspecified R13.10 and Unspecified mononeuropathy of bilateral upper limbs G56.93 [facility] - Kelsey Bernard [address] [place] [address] 09/13/2023 Kelsey Bernard [facility], [facility] - Kelseytamara Bernard [address] [place] [address] 09/20/2023 Kelseytamara Bernard [employer] [facility], [facility] - Kelsey Bernard [address] [place] [address] 12/14/2023 Kelsey Bernard [facility], [facility] - Kelseytamara Bernard [address] [place] [address] 02/07/2024 Kelsey Bernard Assessments Encounter Date Diagnosis (ICD Code) Assessment Notes Treatment Notes Treatment Clinical Notes Section Notes 08/30/2023 Type 2 diabetes mellitus with diabetic neuropathy, unspecified (ICD-10 - E11.40) -Neuropathy worsening to bilateral feet, referral to podiatry. 08/30/2023 Rheumatoid arthritis, unspecified (ICD-10 - M06.9) Assessment: Laila's rheumatoid arthritis was previously managed with Humira and Rinvoq, the latter discontinued due to insurance issues. Reports significant symptom relief with Rinvoq. - Plan: Explore options to reinstate Rinvoq or an alternative medication covered by insurance. Coordinate with rheumatology for ongoing management and potential reintroduction of effective therapy. 08/30/2023 Type 2 diabetes mellitus with hypoglycemia without coma (ICD-10 - E11.649) -Discussed with pt at length insulin sensitizing food and incorporating protein into her diet even with her not having much of an appetite on Ozempic, important for her to have consistent protein intake throughout the day. -Will rx her Gvoke pen for rescue hypoglycemia events. Schedule regular follow-up appointments to monitor treatment effectiveness and side effects. Adjust treatment as necessary based on symptoms and lab results. Encourage a balanced diet and regular blood glucose monitoring with her Dexcom device. 08/30/2023 Other fatigue (ICD-10 - R53.83) -Will check labwork to determine if thyroid is related issue 08/30/2023 Autoimmune thyroiditis (ICD-10 - E06.3) -Will check her thyroid labs, determine if we are going to increase the thyroid dose -We discussed that TSH can be falsely low d/t steroid use Plan: Continue Unithroid at the reduced dose of 50 mcg as per the current prescription. Monitor symptoms and consider further medication adjustment based on follow-up thyroid function tests. 08/30/2023 Dysphagia, unspecified (ICD-10 - R13.10) -Pt provided with US order to complete recheck of her thyroid as it has been 1yr. 08/30/2023 Unspecified mononeuropathy of bilateral upper limbs (ICD-10 - G56.93) elizabeth reports neuropathy, post-accident memory issues, and variable physical activity engagement due to arthritis pain. On multiple medications, including steroids, potentially impacting overall health. - Plan: Review all medications and dosages to optimize treatment. Consider neurology referral for neuropathy and memory issues. Encourage regular, gentle physical activity to manage arthritis symptoms. 08/30/2023 Other QUEST ORDER: CBC, Cmp, iron, tsh, ft3, ft4, vitamin b12 Case discussed with MOISÉS Rae. Agree with plan. Kelsey Bernard MD Plan Of Treatment Pending Test Test Name Order Date thyroid US 08/30/2023 Insurance Providers Payer Name Payer Address Payer Phone Subscriber Number Group Number Insured Name Patient Relationship to Insured Coverage Start Date Coverage End Date [facility] [address] [address] [place] [address] [phone] [id number] Laila Zimmer Self - patient is the insured Medical (General) History Medical History History ICD Code H.B.P HIGH CHOLESTEROL MARY DIABETIES HYPERTENTION
--- OUTSIDE RECORDS SUMMARY | 2024-03-02 19:42 | XMS_ITS | Clinical Summary ---
Author Organization [facility] Address [address] [place] [address] Care Team Providers Care Gear Changer Name Role Phone Pooja Hernández NP Primary Care Provider [phone] Allergies Active Allergy Reactions Criticality Noted Date Comments Ciprofloxacin Nausea And Vomiting,Nausea only Medium 0 05/29/2020 Cyclobenzaprine Rash,Hives Medium 06/13/2019 Cyclobenzaprine Hcl Rash Medium 08/24/2023 Medications biotin 5,000 mcg tablet,chewabl e biotin 5000mg Active ALPRAZolam (XANAX) 0.5 mg tablet alprazolam 0.5 mg tablet Active ezetimibe (ZETIA) 10 mg tablet ezetimibe 10 mg tablet TAKE 1 TABLET BY MOUTH EVERY DAY 07/04/19 20 Active medroxyPROGEST ERone (PROVERA) 5 mg tablet medroxyprogesterone 5 mg tablet TAKE 1 TABLET BY MOUTH EVERY DAY 05/09/19 20 Active nystatin powder nystatin 100,000 unit/gram topical powder Active ondansetron (ZOFRAN) 4 mg tablet ondansetron HCl 4 mg tablet Active pantoprazole DR (PROTONIX) 40 mg EC tablet pantoprazole 40 mg tablet,delayed release Ac tive losartan-hydro CHLOROthiazide (HYZAAR) 100-12.5 mg per tablet Take 1 tablet by mouth daily Active Dexcom G6 Sensor device 08/28/19 23 Active Dexcom G6 Transmitter device USE TO TEST 4 TIMES DAILY 07/16/19 23 Active blood-glucose meter,continuo us (DEXCOM G6 OPERATIONS ENGINEER MISC) see administration instructions. 09/05/19 22 Active cyanocobalamin (Vitamin B-12) 1,000 mcg/mL injection Inject 1 mL (1,000 mcg total) into the muscle as instructed once a week 05/11/19 23 Active omeprazole (PriLOSEC) 20 mg capsule Take 1 capsule (20 mg total) by mouth daily 06/24/19 23 Active BD Insulin Syringe Ultra-Fine 1 mL 31 gauge x 5/16 syringe USE TO INJECT B-12 ONCE WEEKLY FOR 90 DAYS 07/15/19 23 Active estradioL (ESTRACE) 0.5 mg tablet 08/29/19 23 Active HYDROcodone-ac etaminophen (NORCO) 10-325 mg per tablet Take 1-2 tablets by mouth 08/13/19 23 Active clobetasoL (TEMOVATE) 0.05 % ointment Apply topically as needed Active ibuprofen (ADVIL,MOTRIN) 800 mg tablet Take 1 tablet (800 mg total) by mouth 3 (three) times a day as needed 06/08/19 24 Active traZODone (DESYREL) 50 mg tablet Take 1 tablet (50 mg total) by mouth daily 08/17/19 23 Active albuterol HFA (PROVENTIL HFA,VENTOLIN HFA,PROAIR HFA) 90 mcg/actuation inhaler Inhale 2 puffs as needed 07/26/19 24 Active cholecalcifero l (VITAMIN D-3) 50,000 unit capsule Take 1 capsule (50,000 Units total) by mouth once a week 06/10/19 24 Active Ozempic 0.25 mg or 0.5 mg (2 mg/3 mL) pen injector injection Inject under the skin once a week 08/18/19 24 Active Unithroid 50 mcg tablet Take 1 tablet (50 mcg total) by mouth daily 11/02/19 24 Active folic acid (FOLVITE) 1 mg tablet TAKE 1 TABLET BY MOUTH EVERY DAY 90 tablet 1 12/13/19 24 Active predniSONE (DELTASONE) 5 mg tablet Take 1 tablet (5 mg) by mouth daily 30 tablet 1 12/16/19 24 Active leflunomide (ARAVA) 20 mg tablet TAKE 1 TABLET BY MOUTH EVERY DAY 90 tablet 1 01/21/20 24 Active sulfaSALAzine EN (AZULFIDINE EN) 500 mg EC tablet Take 3 tablets (1,500 mg total) by mouth 2 (two) times a day 540 tablet 1 01/28/20 24 2024 Active Active Problems Problem Noted Date Diagnosed Date Seronegative inflammatory arthritis 04/14/2023 Assessment & Plan (01/30/2024 4:18 PM TAPPET ADJUSTER): Acutely flared. Currently just on prednisone 5 mg daily and leflunomide 20 mg daily. Was on Humira, was receiving [employer] patient assistance, then switched to Rinvoq, which was helping a lot. Back on it and giving her samples, but she does not feel like it is helping quite as much as she would like. Given her co-existing UC, when we are able to submit for Rinvoq through insurance again, likely mid February 2024, will look at 30 mg daily dosing given her IBD. Stop mesalamine, she does not find that helpful. Start SSZ, working up to dose of 1000 mg BID. Reach out with any flares. Assessment & Plan (12/13/2023 5:43 AM TAPPET ADJUSTER): Acutely flared. Currently just on prednisone 5 mg daily and leflunomide 20 mg daily. Was on Humira, was receiving [employer] patient assistance, then switched to Rinvoq, which was helping a lot. Was helping her pain and her GI symptoms. Had some issue with coverage, they were requesting close to $4000/year even though she had met her deductible. Not sure why she has this cost without insurance change or income change. We are going to provide Rinvoq samples through the end of the year and then see how that looks in the new year. I think it may have been an insurance glitch. If not, then will look into Actemra. Assessment & Plan (08/24/2023 1:32 PM CDT): Acutely flared. Currently just on prednisone 5 mg daily. Was on Humira, was receiving [employer] patient assistance, then switched to Rinvoq, which was helping a lot. Was helping her pain and her GI symptoms. Had some issue with coverage, they were requesting close to $4000/year even though she had met her deductible. Not sure why she has this cost without insurance change or income change. We are going to call [employer] and see if we can better understand. May need to look into Enbrel and possibly coverage through [employer]. Start leflunomide 20 mg daily with careful monitoring of liver enzymes. Assessment & Plan (04/14/2023 6:55 AM TAPPET ADJUSTER): Still with persistent swelling and joint pain. Still following with GI and on mesalamine. Better since addition of Humira, but thinks she could be doing better. Will switch to Rinvoq. Discussed side effects of Lazaro inhibition and patient willing to proceed. Look into insurance coverage. High risk medication use 04/14/2023 Assessment & Plan (01/28/2024 11:50 AM TAPPET ADJUSTER): Patient is on immunosuppressive medication requiring intensive lab monitoring for medication safety. Has standing orders for CBC, CMP, ESR, CRP. Assessment & Plan (12/13/2023 5:44 AM TAPPET ADJUSTER): Patient is on immunosuppressive medication requiring intensive lab monitoring for medication safety. Has standing orders for CBC, CMP, ESR, CRP. Assessment & Plan (08/24/2023 1:30 PM CDT): Patient is on immunosuppressive medication requiring intensive lab monitoring for medication safety. Check labs one month after starting on leflunomide. Reprinted old orders that were never completed for CBC, CMP, ESR, CRP. Assessment & Plan (04/14/2023 6:54 AM TAPPET ADJUSTER): Patient is on immunosuppressive medication requiring intensive lab monitoring for medication safety. Check labs one month after starting on Rinvoq. Encounters Date Type Department Care Team Description 03/01/2024 Telephone [facility] Rhe[facility]ology at [address] [address] Yuki Mckoy, DO Advice Only 02/29/2024 Telephone [facility] Rheumatology at [address] [place] [address] Yuki Mckoy, DO Hydrocodone RX 01/28/2024 2:25 PM TAPPET ADJUSTER Lab [place] [id number] [facility] [address] [place] [address] Screening for tuberculosis; Seronegative inflammatory arthritis; High risk medication use 01/28/2024 1:30 PM TAPPET ADJUSTER Office Visit [facility] Rheumatology at [address] [place] [address] Yuki Mckoy, Seronegative inflammatory arthritis (Primary Dx); High risk medication use; Screening for tuberculosis 01/19/2024 Telephone [facility] Rhe[facility]ology at [address] [place] [address] Yuki Mckoy DO Pain/Flare 12/08/2023 3:00 PM CDT Office Visit [facility] Rhe[facility] at [address] [place] [address] Yuki Mckoy DO Seronegative inflammatory arthritis (Primary Dx); High risk medication use 12/02/2023 Telephone [facility] Rhe[facility] at [address] [place] [address] Yuki Mckoy DO Pt Questions from Last 3 Months Immunizations Name Administration Dates Next Due Influenza, Quadrivalent, Spl it, Preservative Free, Intramuscular 11/09/2022,12/19/2021,11/01/2020,12/04 Influenza, Trivalent, Cell Culture-based MDCK, Preservative Free, Antibiotic Free, Intramuscular 10/07/2023 Influenza, Trivalent, IM (MDV) 12/29/2013,2013 ZOSTER Recombinant 12/17/2023,06/02/2023 Medical History Medical History Date Comments Inflammatory arthritis Fibromyalgia Colitis Family History Medical History Relation Name Comments Clotting disorder Father Clotting disorder Mother Inflammatory bowel disease Mother Thyroid disease Mother Lupus Sister Relation Name Status Comments Father Alive Mother Alive Sister Alive Social History Tobacco Use Types Packs/Day Years Used Date Smoking Tobacco: Never Smokeless Tobacco: Never Tobacco Cessation:Counseling Given: Not Answered AUDIT-C Answer Date Recorded Q1: How often do you have a drink containing alcohol? Never 08/28/2022 Q2: How many drinks containi ng alcohol do you have on a typical day when you are drinking? Patient does not drink Q3: How often do you have si x or more drinks on one occasion? Never 08/28/2022 Comments Unknown Sex and Gender Information Value Date Recorded Sex Assigned at Not on file Legal Sex Female 4:23 PM TAPPET ADJUSTER Gender Identity Not on file Sexual Orientation Not on file Obstetrics History Last Filed Vital Signs Vital Sign Reading Time Taken Comments Blood Pressure 132/80 01/28/2024 1:22 PM TAPPET ADJUSTER Pulse 76 01/28/2024 1:22 PM TAPPET ADJUSTER Temperature 36.7 ??C (98.1 ??F) 01/28/2024 1:22 PM CS T Respiratory Rate 18 01/28/2024 1:22 PM TAPPET ADJUSTER Oxygen Saturation 96% 01/28/2024 1:22 PM TAPPET ADJUSTER Inhaled Oxygen Concentration - - Weight 95.7 kg (211 lb) 01/28/2024 1:22 PM TAPPET ADJUSTER Height 157.5 cm (5' 2 ) 01/28/2024 1:22 PM TAPPET ADJUSTER Body Mass Index 38.59 01/28/2024 1:22 PM TAPPET ADJUSTER Plan of Treatment Health Maintenance Due Date Last Done Comments Breast Cancer Screening-Mammogram 1972 Cervical Cancer Screening 1972 Colon Cancer Screening-Colonoscopy 1972 Depression Screening 1972 Hepatitis C Screening 1972 DTaP/Tdap/Td Vaccine (1 - Tdap) 05/19/1983 Hepatitis B Screening 1990 Regular Well Visit/Exam 18-64 1990 Influenza Vaccine Completed 10/07/2023, , 12/19/2021, Additional history exists Zoster Vaccine Completed 12/17/2023, 06/02/2023 Pneumococcal vaccine <65 Aged Out No longer eligible based on patient's age to complete this topic Procedures Procedure Name Priority Date/Time Associated Diagnosis Comments EGFR Routine 01/28/2024 2:36 PM TAPPET ADJUSTER Seronegative inflammatory arthritis High risk medication use CRP (ACUTE PHASE) Routine 01/28/2024 2:3 6 PM TAPPET ADJUSTER Seronegative inflammatory arthritis High risk medication use ERYTHROCYTE SEDIMENTATION RATE Routine 01/28/2024 2:36 PM TAPPET ADJUSTER Seronegative inflammatory arthritis High risk medication use COMPREHENSIVE METABOLIC PANEL Routine 01/28/2024 2:36 PM TAPPET ADJUSTER Seronegative inflammatory arthritis High risk medication use CBC WITHOUT DIFFERENTIAL Routine 01/28/2024 2:36 PM TAPPET ADJUSTER Seronegative inflammatory arthritis High risk medication use TB TEST, QUANTIFERON GOLD Routine 01/28/2024 2:36 PM TAPPET ADJUSTER Screening for tuberculosis from Last 3 Months Results * eGFR (01/28/2024 2:36 PM TAPPET ADJUSTER) eGFR 81 >=60 mL/min/1. 73 m2 Comment: Interpretive Data Reference Interval Normal ?>/= 90 mL/min/1.73m2 Mildly decreased* ? 60 - 89 mL/min/1.73m2 Mildly to moderately decreased ?45 - 59 mL/min/1.73m2 Moderately to severely decreased ??30 - 44 mL/min/1.73m2 Severely decreased ?15 - 29 mL/min/1.73m2 Kidney Failure ?< 15 ??mL/min/1.73m2 *Relative to young adult level Estimated glomerular filtration rate is determined by the 2020 CKD-EPI equation recommended by the National Kidney Foundation (A Unifying Approach to GFR Estimation: Recommendations of the NKF-ASK Task Force on Reassessing the Inclusion of Race in Diagnosing Kidney Disease, JASN 202). The CKD-EPI equation should not be used for patients with unstable renal function and has not been validated in children and those over 70. Current interpretive data was last reviewed 2020. Blood 01/28/2024 2:36 PM TAPPET ADJUSTER 01/28/2024 4:58 PM TAPPET ADJUSTER Yuki Mckoy LAB BLOOD ORDERABLES Final Result [facility] [address] [place] [address] * TB test, quantiferon gold (01/28/2024 2:36 PM TAPPET ADJUSTER) Quantiferon TB Gold Negative Negative [facility] Comment: No interferon-gamma response to M. tuberculosis antigens was detected. Latent infection with M. tuberculosis is unlikely. A single negative result does not exclude infection with M. tuberculosis. In patients at high risk for M.tuberculosis infection, a second test should be considered in accordance with the 2017 ATS/IDSA/CDC Clinical Practice Guidelines for Diagnosis of Tuberculosis in Adults and Children [Lewinsohn MELI et. al. Clin. Infect. Dis. 2017;64(2):111-115]. The reference range for the 'TB1 Ag minus Nil Result' and 'TB2 Ag minus Nil Result' is an Interferon-gamma level <0.35 IU/mL. TB-Nil 0.00 IUnits/mL [facility] TB2-Nil 0.03 IUnits/mL [facility] Mitogen-Nil 9.98 IUnits/mL [facility] NIL 0.02 IUnits/mL [facility] Comment: Test Performed by: [place] [address] Naphthalene Operator Helper: Jakob Zheng Ph.D.; CLIA# [id number] Blood 01/28/2024 2:36 PM TAPPET ADJUSTER 01/29/2024 1:49 PM TAPPET ADJUSTER Yuki Mckoy LAB BLOOD ORDERABLES Final Result [facility] [address] [place] [address] [facility] * Erythrocyte sedimentation rate (01/28/2024 2:36 PM TAPPET ADJUSTER) Pathologist [facility] Erythrocyte sedimentation rate 8 1 - 30 mm/hr Blood 01/28/2024 2:36 PM TAPPET ADJUSTER 01/28/2024 4:01 PM TAPPET ADJUSTER Yuki Mckoy LAB BLOOD ORDERABLES Final Result Performing Organization Address [facility]/ZIP Co de Phone Number [facility] [address] [place] [address] * CBC without differential (01/28/2024 2:36 PM TAPPET ADJUSTER) [facility] WBC 7.3 3.8 - 9.9 K/cumm Hgb 13.2 11.9 - 15.5 g/dL [facility] Hct 40.3 35.6 - 45.5 % [facility] Plt 351 150 - 400 K/cumm [facility] MPV 10.9 9.1 - 12.3 fL [facility] RBC 4.28 3.90 - 5.20 M/cumm [facility] MCV 94.2 81.3 - 96.4 fL [facility] MCH 30.8 27.1 - 33.3 pg [facility] MCHC 32.8 32.3 - 35.7 g/dL [facility] RDW CV 14.0 11.1 - 14.9 % [facility] RDW SD 47.8 35.7 - 48.1 fL [facility] NRBC abs 0.00 0.00 - 0.01 K/cumm [facility] Blood 01/28/2024 2:36 PM TAPPET ADJUSTER 01/28/2024 4:01 PM TAPPET ADJUSTER Yuki Mckoy DO LAB BLOOD ORDERABLES Final Result [facility] [address] [place] [address] * CRP (acute phase) (01/28/2024 2:36 PM TAPPET ADJUSTER) Pathologist [facility] CRP <3.0 <=10.0 mg/L Blood 01/28/2024 2:36 PM TAPPET ADJUSTER 01/28/2024 4:58 PM TAPPET ADJUSTER us Yuki Mckoy DO LAB BLOOD ORDERABLES Final Result [facility] [address] [place] [address] * (ABNORMAL) Comprehensive metabolic panel (01/28/2024 2:36 PM TAPPET ADJUSTER) Sodium 139 135 - 145 mmol/L Potassium, pl 3.6 3.3 - 4.9 mmol/L [facility] Chloride 99 97 - 110 mmol/L [facility] CO2 26 22 - 32 mmol/L [facility] Anion gap 14 2 - 15 mmol/L [facility] BUN 16 6 - 25 mg/dL [facility] Creatinine 0.87 0.60 - 1.10 mg/dL [facility] Glucose 97 70 - 199 mg/dL [facility] Comment: Interpretive Data Fasting glucose >/= 126 mg/dl is diagnostic for diabetes. ?? Fasting is defined as no caloric intake for at least 8 hours. Fasting glucose between 100 mg/dl to 125 mg/dl is diagnostic of prediabetes. In a patient with classic symptoms of hyperglycemia or hyperglycemic crisis, a random glucose >/= 200 mg/dl is diagnostic for diabetes. In the absence of unequivocal hyperglycemia, results should be confirmed by repeat testing. The classification and Diagnosis of Diabetes Diabetes Care 202; 46: S19-S40. Current interpretive data was last revised 2022. Calcium 9.3 8.5 - 10.3 mg/dL [facility] Bilirubin, total 0.4 0.1 - 1.2 mg/dL [facility] Protein, pl 7.0 6.5 - 8.5 g/dL [facility] Albumin 4.6 3.5 - 5.0 g/dL [facility] Alk phos 37(L) 40 - 130 Units/L [facility] ALT 28 7 - 45 Units/L [facility] AST 34 10 - 45 Units/L [facility] Blood 01/28/2024 2:36 PM TAPPET ADJUSTER 01/28/2024 4:58 PM TAPPET ADJUSTER us Yuki Bethany Mckoy DO LAB BLOOD ORDERABLES Final Result [facility] [address] [place] [address] from Last 3 Months Insurance [email or web address] OOS [email or web address] Care Teams Gear Changer Relationship Specialty Start Date End Date Pooja Hernández NP [address] [place] [address] PCP - General Nurse Practitioner 08/24/23
--- OUTSIDE RECORDS SUMMARY | 2024-03-02 19:42 | XMS_ITS | Clinical Summary ---
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 ) Gender Identity Not on file Sexual Orientation Not on file Plan of Treatment Health Maintenance Due Date Last Done Comments DIABETES ANNUAL FOOT EXAM 1990 DIABETES ANNUAL RETINAL EXAM 1990 DIABETES MICROALBUMIN ANNUAL SCREEN 1990 LDL CHOLESTEROL ANNUAL 1990 DTAP/TDAP/TD VACCINES (1 - Tdap) 05/19/1991 HEPATITIS B VACCINES (1 of 3 - 19+ 3-dose series) 05/19/1991 PNEUMOCOCCAL VACCINE 0-64 YE ARS (1 of 2 - PCV) 05/19/1991 CERVICAL CANCER SCREENING 2002 BREAST CANCER SCREENING 2012 COLORECTAL SCREENING 2017 Colorectal Cancer Screening 2017 FIT-DNA Q 3 years 2017 FIT/FOBT Q 1 year 2017 Flex Sig/CT Colonography Q 5 years 2017 DIABETES HBA1C Q 6 MONTHS 04/07/2022 10/08/2021 ZOSTER VACCINE (1 of 2) 2022 INFLUENZA VACCINE (#1) 2023 1, 12/05/2019, 12/29/2013, Additional history exists Insurance [employer] BLUE ACCESS/TRUE BLUE PPO Care Teams Assistant Office Manager Relationship Specialty Start Date End Date Sandi Martinez MD PCP - General Family Practice 11/12/21
--- OUTSIDE RECORDS SUMMARY | 2024-03-02 19:42 | XMS_ITS | Clinical Summary ---
Author Organization [facility] Address [address] [place] [address]. [place], [place] [address] [place] [address] Care Team Providers Care Instrument Shop Supervisor Name Role Phone Sandi aNvarrete MD Primary Care Provider [phone] Allergies Active Allergy Reactions Criticality Noted Date Comments Ciprofloxacin Nausea and Vomiting,Nausea Only Medium 0 05/29/2020 Cyclobenzaprine Hives 08/15/2022 Medications hydroCHLOROthi azide (MICROZIDE) 12.5 MG tablet Take 1 tablet (12.5 mg total) by mouth daily. 30 tablet 3 Active medroxyPROGEST ERone (PROVERA) 5 MG tablet Take 1 tablet (5 mg total) by mouth daily. 10 tablet 3 Active pantoprazole EC (PROTONIX) 40 MG tablet Take 1 tablet (40 mg total) by mouth daily. 30 tablet 3 Active omeprazole (PRILOSEC) 20 MG capsule Take 1 capsule (20 mg total) by mouth daily. 3 Active vitamin D3, cholecalcifero l, 125 mcg capsule Take 1 capsule (125 mcg total) by mouth every morning. 3 Active cyanocobalamin (B-12) 1000 MCG/ML injection Inject 1 mL (1,000 mcg total) into the muscle once a week. 3 Active ezetimibe (ZETIA) 10 MG tablet Take 1 tablet (10 mg total) by mouth daily with lunch. 3 Active levothyroxine (UNITHROID) 75 MCG tablet Take 1 tablet (75 mcg total) by mouth daily with lunch. Active estradiol (ESTRACE) 0.5 MG tablet Take 2 tablets (1 mg total) by mouth daily with lunch. Active metFORMIN ER (GLUCOPHAGE-XR ) 500 MG 24 hr tablet Take 2 tablets (1,000 mg total) by mouth daily with lunch. 3 Active losartan-hydro CHLOROthiazide (HYZAAR) 100-12.5 MG tablet Take 1 tablet by mouth daily with lunch. 3 Active ibuprofen (MOTRIN) 800 MG tablet Take 1 tablet (800 mg total) by mouth 3 (three) times daily as needed. Active HYDROcodone-ac etaminophen (NORCO) 10-325 MG tablet Take 1-2 tablets by mouth every 4 (four) hours as needed. 3 Active Continuous Blood Gluc Streetsweeper Operator (DEXCOM G6 MANAGER OPERATING) Device see administration instructions. 2 Active ALPRAZolam (XANAX) 0.25 MG tablet Take 1 tablet (0.25 mg total) by mouth 3 (three) times daily as needed. Active Biotin 5000 MCG Cap Take 1 tablet by mouth daily. Active OZEMPIC 1 mg/dose injection (PEN) Inject 1 mg into the skin once a week. 3 Active adalimumab (HUMIRA) 40 MG/0.8ML injection Inject 0.8 mLs (40 mg total) into the skin once. Active albuterol sulfate HFA 108 (90 Base) MCG/ACT inhaler INHALE 2 PUFFS EVERY 4 HOURS BY INHALATION ROUTE. Active SYMBICORT 160-4.5 MCG/ACT inhaler Inhale 2 puffs into the lungs 2 (two) times daily. 3 Active mesalamine ER (APRISO) 0.375 g CAPSULE SR 24 HR 24 hr capsule TAKE 4 CAPSULES BY MOUTH EVERY DAY 3 Active ondansetron (ZOFRAN) 4 MG tablet Take 1 tablet (4 mg total) by mouth every 8 (eight) hours as needed. 3 Active predniSONE (DELTASONE) 5 mg tablet TAKE 6 TABS IN AM OF FIRST AND SECOND DAY, THEN DECREASE BY 1 TAB EVERY 2 DAYS UNTIL GONE 3 Active Active Problems Problem Noted Date Diagnosed Date Acute colitis 08/15/2022 Family History Medical History Relation Comments Brain cancer Father Cancer Father Heart Disease Father Stroke Father Diabetes Mother Heart Disease Mother Stroke Mother Relation Status Comments Father Mother Social History Tobacco Use Types Packs/Day Years Used Date Smoking Tobacco: Never Smokeless Tobacco: Never Tobacco Cessation:Counseling Given: No Alcohol Use Standard Drinks/Week Comments Not Currently 0 (1 standard drink = 0.6 oz pur e alcohol) Comments No Sex and Gender Information Value Date Recorded Sex Assigned at Female 08/16/2022 12:33 AM CDT Legal Sex Female 9:32 AM CDT Gender Identity Female 08/16/2022 12:33 AM CDT Sexual Orientation Straight 08/16/2022 12 :33 AM CDT Last Filed Vital Signs Vital Sign Reading Time Taken Comments Blood Pressure 118/67 12/29/2022 9:47 AM FLUME TENDER Pulse 73 12/29/2022 9:47 AM FLUME TENDER Temperature 35.8 ??C (96.5 ??F) 12/29/2022 9:42 AM CS T Respiratory Rate 18 12/29/2022 9:42 AM FLUME TENDER Oxygen Saturation 95% 12/29/2022 9:47 AM FLUME TENDER Inhaled Oxygen Concentration - - Weight 81.2 kg (179 lb) 12/21/2022 4:30 PM FLUME TENDER Height 157.5 cm (5' 2 ) 12/21/2022 4:30 PM FLUME TENDER Body Mass Index 32.74 12/21/2022 4:30 PM FLUME TENDER Plan of Treatment Health Maintenance Due Date Last Done Comments Cervical Cancer Screening Pap Smear (Age 30 to 64) Every 3 Years 1972 Annual Physical 05/19/1975 PHQ-2 (Physician [place]) 1984 Hepatitis C 1990 DTaP, Tdap and Td Vaccines (1 - Tdap) 05/19/1991 Hepatitis B Vaccines (1 of 3 - 19+ 3-dose series) 05/19/1991 Cervical Cancer Screening Pap with HPV Testing (Age 30 to 64) Every 5 Years 2002 Cervical Cancer Screening with HPV 2002 Mammogram Screening 2012 Zoster Vaccines (1 of 2) 2022 COVID-19 Vaccine (1 - season) 2023 Influenza Adult (#1) 2023 11/09/2022, 12/19/2021, 11/01/2020, Additional history exists Colorectal Cancer Screening Colonoscopy (10 Years) 12/29/2032 12/29/2022, 12/29/2022 Meningococcal B Vaccine Aged Out No l onger eligible based on patient's age to complete this topic Meningococcal Vaccine Aged Out No jeremi redd eligible based on patient's age to complete this topic Pneumococcal Vaccine: Pediatrics (0 to 5 Years) and At-Risk Patients (6 to 64 Years) Aged Out No longer eligible based on patient's age to complete this topic RSV Immunizations Under 20 Months Aged Out No longer eligible based on patient's age to complete this topic Goals Goal Patient Goal Type Associated Problems Recent Progress Patient-Stated? Author Patient will return to prior living situation and remain independent in ADLs upon discharge from hospital Lifestyle No Donita Voss RN Procedures Procedure Name Priority Date/Time Associated Diagnosis Comments COLONOSCOPY Routine 12/29/2022 9:07 AM FLUME TENDER from Last 3 Months or Most Recently Relevant to Health Maintenance Insurance Advance Directives * Full Code (Latest Code Status on File) Date Activated Date Inactivated Comments 08/15/2022 11:40 PM 08/17/2022 7:32 PM Care Teams Instrument Shop Supervisor Relationship Specialty Start Date End Date Sandi Navarrete MD [address] [place] [address] PCP - General FAMILY PRACTICE 05/05/22
--- OUTSIDE RECORDS SUMMARY | 2024-03-02 19:42 | XMS_ITS | Referral Summary ---
Author Organization [facility] Address [address] [place] [address] Care Team Providers Care Assembly Line Machine Operator Name Role Phone Pooja Hernández NP Primary Care Provider [phone] Encounters Date Type Department Care Team Description 03/01/2024 Telephone [facility] Rheumatology at [address], [place] [address] Yuki Mckoy DO Advice Only 02/29/2024 Telephone [facility] Rheumatology at [address], [place] [address] Yuki Mckoy DO Hydrocodone RX 01/28/2024 2:25 PM PYTHON ARCHITECT Lab [address] [place] [address] Screening for tuberculosis; Seronegative inflammatory arthritis; High risk medication use 01/28/2024 1:30 PM PYTHON ARCHITECT Office Visit [facility] Rheumatology at [address] [place] [address] Yuki Mckoy DO Seronegative inflammatory arthritis (Primary Dx); High risk medication use; Screening for tuberculosis 01/19/2024 Telephone [facility] Rheumatology at [address], [place] [address] Yuki Mckoy DO Pain/Flare 12/08/2023 3:00 PM CDT Office Visit [facility] Rhe[facility]ology at [facility] [address] [place] [address] Yuki Mckoy DO Seronegative inflammatory arthritis (Primary Dx); High risk medication use 12/02/2023 Telephone [facility] Rheumatology at [place] [address] [facility] [address] [place] [address] Yuki Mckoy DO Pt Questions from Last 3 Months Allergies Active Allergy Reactions Criticality Noted Date [...] 23 Active blood-glucose meter,continuo us (DEXCOM G6 POT BUILDER [facility]) see administration instructions. 09/05/19 22 Active cyanocobalamin (Vitamin B-12) 1,000 mcg/mL injection Inject 1 mL (1,000 mcg total) into the muscle as instructed once a week 05/11/19 23 Active omeprazole (PriLOSEC) 20 mg capsule Take 1 capsule (20 mg total) by mouth daily 06/24/19 23 Active BD Insulin Syringe Ultra-Fine 1 mL 31 gauge x 06/23 syringe USE TO INJECT B-12 ONCE WEEKLY [...] 04/14/2023 Assessment & Plan (01/30/2024 4:18 PM PYTHON ARCHITECT): Acutely flared. Currently just on prednisone 5 [...] flares. Assessment & Plan (12/13/2023 5:43 AM PYTHON ARCHITECT): Acutely flared. Currently just on prednisone 5 [...] income change. We are going to call [employer] and see if we can better understand. May need to look into Enbrel and possibly coverage through [employer]. Start leflunomide 20 mg daily with careful monitoring of liver enzymes. Assessment & Plan (04/14/2023 6:55 AM PYTHON ARCHITECT): Still with persistent swelling and joint pain. Still following with GI and on mesalamine. Better since addition of Humira, but thinks she could be doing better. Will switch to Rinvoq. Discussed side effects of Lazaro inhibition and patient willing to proceed. Look into insurance coverage. High risk medication use 04/14/2023 Assessment & Plan (01/28/2024 11:50 AM PYTHON ARCHITECT): Patient is on immunosuppressive medication requiring intensive lab monitoring for medication safety. Has standing orders for CBC, CMP, ESR, CRP. Assessment & Plan (12/13/2023 5:44 AM PYTHON ARCHITECT): Patient is on immunosuppressive medication requiring intensive [...] CRP. Assessment & Plan (04/14/2023 6:54 AM PYTHON ARCHITECT): Patient is on immunosuppressive medication requiring intensive lab monitoring for medication safety. Check labs one month after starting on Rinvoq. Immunizations Name Administration Dates Next Due Influenza, Quadrivalent, Spl it, Preservative Free, Intramuscular 11/09/2022,12/19/2021,11/01/2020,12/04 Influenza, Trivalent, Cell Culture-based MDCK, Preservative Free, Antibiotic Free, Intramuscular 10/07/2023 Influenza, Trivalent, IM (MDV) 12/29/2013,2013 ZOSTER Recombinant 12/17/2023,06/02/2023 Social History Tobacco Use Types Packs/Day Years [...] on file Legal Sex Female 4:23 PM PYTHON ARCHITECT Gender Identity Not on file Sexual Orientation Not on file Last Filed Vital Signs Vital Sign Reading Time Taken Comments Blood Pressure 132/80 01/28/2024 1:22 PM PYTHON ARCHITECT Pulse 76 01/28/2024 1:22 PM PYTHON ARCHITECT Temperature 36.7 ??C (98.1 ??F) 01/28/2024 1:22 PM CS T Respiratory Rate 18 01/28/2024 1:22 PM PYTHON ARCHITECT Oxygen Saturation 96% 01/28/2024 1:22 PM PYTHON ARCHITECT Inhaled Oxygen Concentration - - Weight 95.7 kg (211 lb) 01/28/2024 1:22 PM PYTHON ARCHITECT Height 157.5 cm (5' 2 ) 01/28/2024 1:22 PM PYTHON ARCHITECT Body Mass Index 38.59 01/28/2024 1:22 PM PYTHON ARCHITECT Plan of Treatment Not on file Procedures Procedure Name Priority Date/Time Associated Diagnosis Comments EGFR Routine 01/28/2024 2:36 PM PYTHON ARCHITECT Seronegative inflammatory arthritis High risk medication use CRP (ACUTE PHASE) Routine 01/28/2024 2:3 6 PM PYTHON ARCHITECT Seronegative inflammatory arthritis High risk medication use ERYTHROCYTE SEDIMENTATION RATE Routine 01/28/2024 2:36 PM PYTHON ARCHITECT Seronegative inflammatory arthritis High risk medication use COMPREHENSIVE METABOLIC PANEL Routine 01/28/2024 2:36 PM PYTHON ARCHITECT Seronegative inflammatory arthritis High risk medication use CBC WITHOUT DIFFERENTIAL Routine 01/28/2024 2:36 PM PYTHON ARCHITECT Seronegative inflammatory arthritis High risk medication use TB TEST, QUANTIFERON GOLD Routine 01/28/2024 2:36 PM PYTHON ARCHITECT Screening for tuberculosis from Last 3 Months Results * eGFR (01/28/2024 2:36 PM PYTHON ARCHITECT) eGFR 81 >=60 mL/min/1. 73 m2 Comment: [...] of Race in Diagnosing Kidney Disease, JASN 2020). The CKD-EPI equation should not be used for patients with unstable renal function and has not been validated in children and those over 70. Current interpretive data was last reviewed 2020. Blood 01/28/2024 2:36 PM PYTHON ARCHITECT 01/28/2024 4:58 PM PYTHON ARCHITECT us Yuki Mckoy DO LAB BLOOD ORDERABLES Final Result Performing Organization Address City/State/[facility] Co sc Phone Number [facility] [address] Department [place] [address] * TB test, quantiferon gold (01/28/2024 2:36 PM PYTHON ARCHITECT) [facility] Quantiferon TB Gold Negative Negative [facility] Comment: No interferon-gamma response to M. tuberculosis antigens was detected. Latent infection with M. tuberculosis is unlikely. A single negative result does not exclude infection with M. tuberculosis. In patients at high risk for M.tuberculosis infection, a second test should be considered in accordance with the 2017 ATS/IDSA/CDC Clinical Practice Guidelines for Diagnosis of Tuberculosis in Adults and Children [Singh GARRISON et. al. Clin. Infect. Dis. 2017;64(2):111-115]. The reference range for the 'TB1 Ag minus Nil Result' and 'TB2 Ag minus Nil Result' is an Interferon-gamma level <0.35 IU/mL. TB-Nil 0.00 IUnits/mL [facility] TB2-Nil 0.03 IUnits/mL [facility] Mitogen-Nil 9.98 IUnits/mL [facility] NIL 0.02 IUnits/mL [facility] Comment: Test Performed by: [facility] [address] [place] [address] Certified Orthotist: Jakob Zheng Ph.D.; CLIA# [id number] Blood 01/28/2024 2:36 PM PYTHON ARCHITECT 01/29/2024 1:49 PM PYTHON ARCHITECT [facility] Mckoy LAB BLOOD ORDERABLES Final Result Performing Organization Address [facility] Co de Phone Number [facility] [address] [place] [address] [facility] * Erythrocyte sedimentation rate (01/28/2024 2:36 PM PYTHON ARCHITECT) Pathologist [facility] [place] Erythrocyte sedimentation rate 8 1 - 30 mm/hr Blood 01/28/2024 2:36 PM PYTHON ARCHITECT 01/28/2024 4:01 PM PYTHON ARCHITECT [facility] LAB BLOOD ORDERABLES Final Result Performing Organization Address [facility] Co de Phone Number [facility] [address] [place] [address] * CBC without differential (01/28/2024 2:36 PM PYTHON ARCHITECT) Pathologist [facility] [place] WBC 7.3 3.8 - 9.9 K/cumm Hgb 13.2 11.9 - 15.5 g/dL [facility] Hct 40.3 35.6 - 45.5 % [facility] Plt 351 150 - 400 K/cumm [facility] MPV 10.9 9.1 - 12.3 fL [facility] RBC 4.28 3.90 - 5.20 M/cumm [facility] MCV 94.2 81.3 - 96.4 fL [facility] MCH 30.8 27.1 - 33.3 pg [facility] MCHC 32.8 32.3 - 35.7 g/dL [facility] RDW CV 14.0 11.1 - 14.9 % [facility] RDW SD 47.8 35.7 - 48.1 fL [facility] NRBC abs 0.00 0.00 - 0.01 K/cumm [facility] Blood 01/28/2024 2:36 PM PYTHON ARCHITECT 01/28/2024 4:01 PM PYTHON ARCHITECT Yuki Mckoy LAB BLOOD ORDERABLES Final Result Performing Organization Address [facility] Co de Phone Number [facility] [address] [facility] [place] [address] * CRP (acute phase) (01/28/2024 2:36 PM PYTHON ARCHITECT) [facility] CRP <3.0 <=10.0 mg/L Blood 01/28/2024 2:36 PM PYTHON ARCHITECT 01/28/2024 4:58 PM PYTHON ARCHITECT Yuki Mckoy DO LAB BLOOD ORDERABLES Final Result Performing Organization Address [facility] Co de Phone Number [facility] [address] [place] [address] * (ABNORMAL) Comprehensive metabolic panel (01/28/2024 2:36 PM PYTHON ARCHITECT) [facility] Sodium 139 135 - 145 mmol/L Potassium, pl 3.6 3.3 - 4.9 mmol/L [facility] Chloride 99 97 - 110 mmol/L [facility] CO2 26 22 - 32 mmol/L [facility] Anion gap 14 2 - 15 mmol/L [facility] BUN 16 6 - 25 mg/dL [facility] Creatinine 0.87 0.60 - 1.10 mg/dL [facility] Glucose 97 70 - 199 mg/dL [facility] Comment: Interpretive Data Fasting glucose >/= 126 [...] 2022. Calcium 9.3 8.5 - 10.3 mg/dL [facility] Bilirubin, total 0.4 0.1 - 1.2 mg/dL [facility] Protein, pl 7.0 6.5 - 8.5 g/dL [facility] Albumin 4.6 3.5 - 5.0 g/dL [facility] Alk phos 37(L) 40 - 130 Units/L [facility] ALT 28 7 - 45 Units/L [facility] AST 34 10 - 45 Units/L [facility] Blood 01/28/2024 2:36 PM PYTHON ARCHITECT 01/28/2024 4:58 PM PYTHON ARCHITECT us Yuki Mckoy DO LAB BLOOD ORDERABLES Final Result [facility] [address] Department [place] [address] from Last 3 Months Insurance [employer] ACCESS [employer] ACCESS OOS [employer] Care Teams Assembly Line Machine Operator Relationship Specialty Start Date End Date Pooja Hernández NP [address] [place] [address] PCP - General Nurse Practitioner 08/24/23
--- OUTSIDE RECORDS SUMMARY | 2024-03-02 19:42 | XMS_ITS | Encounter Summary ---
Author Organization [facility] [employer] [facility] [facility] Address [address] [place] [address] Care Team Providers Care Local Tanker Truck Driver Name Role Phone Sandi Martinez MD Primary Care Provider [phone] Encounter Details Date Type Department Care Team (Late st Contact Info) Description 04/03/1998 Outpatient [place] [address] [facility] [address] [place] [phone] Social History Tobacco Use Types Packs/Day Years Used Date Smoking Tobacco: Never Assessed Comments Unknown Sex and Gender Information Value Date Recorded Sex Assigned at Not on file Legal Sex Female 3:30 AM IT RISK ADVISOR Gender Identity Not on file Sexual Orientation Not on file documented as of this encounter Plan of Treatment Not on file documented as of this encounter Visit Diagnoses Not on filedocumented in this encounter Care Teams Local Tanker Truck Driver Relationship Specialty Start Date End Date Sandi Martinez MD PCP - General Family Practice 11/12/21 documented as of this encounter
--- OUTSIDE RECORDS SUMMARY | 2024-03-02 19:42 | XMS_ITS | Encounter Summary ---
Author Organization [employer] Address 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
--- OUTSIDE RECORDS SUMMARY | 2024-03-02 19:42 | XMS_ITS ---
Author Organization [facility] Address [address] [address] Care Team Providers Care Engineering Equipment Operator Name Role Phone Kelsey Bernard Primary Care Provider Migration, Provider Unavailable Unavailable REAS[facility] VISIT [facility] Encounter Medications Medication SIG (Take, Route, Frequency, Duration) Notes Start Date End Date Status predniSONE 5 MG TAKE 1 TABLET BY [...] e-prescription and drug interaction check* 08/30/2023 Unknown Ezetimibe 10 MG for 90 Days Un known Ozempic (0.25 or 0.5 MG/DOSE) 2 MG/3ML INJECT 0.5 MG ONE TIME PER WEEK for 28 Days Unknown Unithroid 50 MCG (0.05 MG) for 30 DAYS *Please review and pick correct strength[facility]ulati on from [facility] options. If intended option is not shown, discontinue and re-order from Quick Search* Unknown Folic Acid 1 MG for 90 Days Un known Leflunomide 20 MG for 90 Days Unknown Encounters Encounter Location Date Provider Diagnosis [facility] [address] [address] 12/25/2023 Provider Migration Plan Of Treatment No Information Progress Notes * Laila ZIMMERDOB: [birth year] (53 yo F)Acc No.[id number]:12/25/2023 Patient:Laila ROSEN Provider:?Provider Migration :1970???Age:53 Y???Sex:Female D ate:12/25/2023 Phone: Address:[address], [place], [place] Pcp:Kelsey Bernard Subjective: * Chief Complaints: * ???1. Multum To [facility] Con version Encounter. * Medical History:? * Medications:?Unknown Unithro id 50 MCG (0.05 MG) TABLET , Notes to Pharmacist: *Please review and pick correct strength-formulation from [facility] options. If intended option is not shown, discontinue and re-order from Quick Search*, Unknown Folic Acid 1 MG Tablet , Unknown Leflunomide 20 MG Tablet , Unknown Ezetimibe 10 MG Tablet , Unknown Ozempic (0.25 or 0.5 MG/DOSE)(Semaglutide(0.25 or 0.5MG/DOS)) 2 MG/3ML Solution Pen-injector INJECT 0.5 MG ONE TIME PER WEEK , Unknown predniSONE 5 MG Tablet TAKE 1 TABLET BY MOUTH EVERY DAY , Unknown ALPRAZolam 0.5 MG Tablet , Unknown Losartan Potassium-HCTZ 100-12.5 MG Tablet TAKE 1 TABLET BY MOUTH EVERY DAY , Unknown HYDROcodone-Ibuprofen 10-200 MG Tablet 1 tab(s) orally every 4 hours , Unknown GVOKE HYPOPEN TWO PACK 1 MG/0.2 ML SOLUTION DIRECTED SUBCUTANEOUSLY ONCE , Notes to Pharmacist: *Please review for potential replacement for e-prescription and drug interaction check* Objective: * Vitals:? Assessment: Plan: * Treatment: * Billing Information: * Visit Code:? * Procedure Codes:? * Electronic signature of Prov ider Migration on 03/02/2024 at 07:41 PM ASSOCIATE PROPERTY MANAGER Sign off status: Pending * Provider:?Provider Migration Date:?12/24 Generated for Adrian lindsay/Selma/Farhad on:?03/02/2024 07:41 PM ASSOCIATE PROPERTY MANAGER
--- OUTSIDE RECORDS SUMMARY | 2024-03-02 19:42 | XMS_ITS | Patient Health Record ---
Author Organization [facility] Address [address] [facility] [address] [place], [place] [address] Care Team Providers Care Car Body Mechanic Name Role Phone TERRENCE MADSEN Primary Care Provider Unavailab CartySinamckenzie Unavailable [phone] ALLERGIES Allergen (clinical drug ingredient) Drug/Non Drug Allergy documented on EMR Reaction Allergy Type Onset Date Status Flexeril Unknown Drug Allergy Active REASON FOR REFERRAL No Information MEDICATIONS Medication SIG (Take, Route, Frequency, Duration) Notes Start Date End Date Status biotin Active Vitamin B12 Active Hydrocodone Active sulfaSALAzine 500 mg 1 tab(s) orally 2 times a day for 30 day(s) 01/13/2022 Active medroxyPROGESTERone 5 mg 1 tab(s) orally once a day for 10 day(s) Active losartan 100 mg 1 tab(s) orally once a day for 30 day(s) Active levothyroxine 50 mcg (0.05 mg) 1 tab(s) orally once a day for 30 day(s) Active predniSONE 5 mg 3 tabs x4 days, 2 tabs x4 day, and 1 tab x4 days orally once a day for 12 days 01/13/2022 Active ezetimibe 10 mg 1 tab(s) orally once a day for 30 day(s) Active predniSONE 5 mg 6 tablets for 2 days then decrease by 1 tablet every 2 days until misbah orally once a day for 12 days 02/18/2022 Active pantoprazole 40 mg 1 tab(s) orally once a day for 30 day(s) Active metformin HCL ER 500 mg 1 tab orally 2 t imes a day Active Ozempic Active folic acid 1 mg 2 tab(s) orally once a day for 30 days 02/23/2022 Active estradiol 1 mg 1 tab(s) orally once a day for 30 day(s) Active leflunomide 20 mg 1 tab(s) orally once a day for 30 day(s) 02/23/2022 Active ondansetron 4 mg 1 tab(s) orally ever y 8 hours Active tiZANidine 4 mg 2 tab(s) orally ever y 8 hours for 30 day(s) Active SOCIAL HISTORY Sex Assigned At : Social History Observation Description Sex Assigned At Unknown PROBLEMS Problem Type ICD Code Onset Dates Problem Status W/U Status Risk SNOMED Code Notes Problem Low back pain at multiple sites (M54.50) Active confirmed 626723740 Problem Polyarthralgia (M25.50) Active confirmed 34294771 Problem Myalgia (M79.10) Active confirmed 35587 001 Problem Miscarriage (O03.9) Active confirmed 17 178131 Problem Rheumatoid arthritis without rheumatoid factor, multiple sites (M06.09) Active confirmed 427519613 Problem Elevated LFTs (R79.89) Active confirmed 625842427 PLAN OF TREATMENT Pending Test Test Name Order Date AST (SGOT) 09/04/2021 AST (SGOT) 09/24/2021 AST (SGOT) 01/13/2022 Creatinine, Serum 01/13/2022 Creatinine, Serum 09/04/2021 ALT (SGPT) 01/13/2022 ALT (SGPT) 09/24/2021 ALT (SGPT) 09/04/2021 CBC With Differential/Platelet 2 CBC With Differential/Platelet 2 Sed Rate - Westergren 01/13/2022 Sed Rate - Westergren 09/04/2021 C-Reactive Protein, Quant 01/13/2022 Actin (Smooth Muscle) Antibody 2 Mitochondrial (M2) Antibody 04/25/2021 Lupus Anticoagulant Comprehens 2 Anticardiolip Ab, IgA/G/M, Qn 04/25/2021 HOLLY Panel (HOLLY+LISA+Scl 70+SjoSSA+SjoSSB) 04/25/2021 X ray : Hand left- outside order 022 X ray : Hand right- outside order 2021 Acute Hepatitis Panel(DO NOT USE) 2021 Hep B Surface Ab qualatative 04/25/2021 DS DNA-CRITHIDIA IFA W/REFLEX TO TITER-L [facility] 04/25/2021 X ray : Foot Left- outside order 022 X ray : Foot Right- outside order 2021 Lab slip given 07/10/2021 Lab slip given 01/13/2022 Lab slip given 09/04/2021 Lab slip given 09/24/2021 Lab slip given 04/25/2021 Lab slip given 05/07/2021 Urinalysis, Routine 04/25/2021 Insurance Providers Payer Name Payer Address Payer Phone Subscriber Number Group Number Insured Name Patient Relationship to Insured Coverage Start Date Coverage End Date [facility] [address] [place] [address] [id number] ALIS ZIMMER Spouse - patient is the spouse of the insured 1 MEDICAL (GENERAL) HISTORY Medical History History ICD Code diabetes neuropathy depression tension headaches Double vision sinus problems dizziness anxiety swelling of ankles/feet poor appetite indigestion weight gain Kidney stones abnormal pap smear Hot Flashes Surgical History Surgery Date(Month/Year) C section Carpal Tunnel surgery gallbladder surgery
--- OUTSIDE RECORDS SUMMARY | 2024-03-02 19:42 | XMS_ITS | Referral Summary ---
Author Organization [facility] Address [address] [place] [address] Care Team Providers Care Organizational Effectiveness Consultant Name Role Phone Sandi Martinez MD Primary Care Provider [phone] Source Comments [facility],non-owned Affiliates and Associated Physician Practices is amultiple site organization consisting of ambulatory clinics and hospital sitesin [place], [place], [place] and [place]. This disclosure is being madepursuant to the Care Everywhere program and may not contain all information available regarding this patient. Last updated 17.[facility] Allergies Active Allergy Reactions Criticality Noted Date Comments Ciprofloxacin Nausea and/or Vomiting Medium 05/29/2020 Cyclobenzaprine Rash Medium 05/29/2020 Medications * Be aware that medications may not be up to date on this document. Alwaysverify current medications with the patient. Medication Sig Dispensed Refills Start Date End Date Status predniSONE (DELTASONE) 10 MG tablet 3 tabs BID x4 days, 2 tabs BID x3 days, 1 tab BID x3 days then stop 42 tablet 05/29/2020 Active Active Problems No known active problems Social History Tobacco Use Types Packs/Day Years Used Date Smoking Tobacco: Never Smokeless Tobacco: Never Sex and Gender Information Value Date Recorded Sex Assigned at Not on file Gender Identity Not on file Sexual Orientation Not on file Last Filed Vital Signs Vital Sign Reading Time Taken Comments Blood Pressure - - Pulse - - Temperature - - Respiratory Rate - - Oxygen Saturation - - Inhaled Oxygen Concentration - - Weight 85.7 kg (189 lb) 08/14/2020 3:09 PM CDT Height 157.5 cm (5' 2 ) 08/14/2020 3:09 PM CDT Body Mass Index 34.57 08/14/2020 3:09 PM CDT Plan of Treatment Not on file Goals Goal Patient Goal Type Associated Problems Recent Progress Patient-Stated? Author Mobility General No Beatriz Colón RN Note: Expected end date: 02/07/2021 The goal is to maintain or improve your mobility at the optimum level for you. Interventions: Care Teams Organizational Effectiveness Consultant Relationship Specialty Start Date End Date Sandi Martinez MD [address] [place] [address] PCP - General 09/06/20
--- OUTSIDE RECORDS SUMMARY | 2024-03-02 19:42 | XMS_ITS | Clinical Summary ---
Author Organization [facility] Address [address] [place] [address] Care Team Providers Care Food Equipment Service Technician Name Role Phone Sandi Martinez MD Primary Care Provider [phone] Source Comments [facility],non-owned Affiliates and Associated Physician Practices is amultiple site organization consisting of ambulatory clinics and hospital sitesin [place], [place] and [place]. This disclosure is being madepursuant to the Care Everywhere program and may not contain all information available regarding this patient. Last updated 17.[facility] Allergies Active Allergy Reactions Criticality Noted Date [...] 08/14/2020 3:09 PM CDT Plan of Treatment Health Maintenance Due Date Last Done Comments COLOGUARD (AGES 45-75) - COLON CA SCREENING 1972 COLON MONITORING 1972 COLONOSCOPY - COLON CA SCREENING 1972 CT COLONOGRAPHY - COLON CA SCREENING 1972 Colorectal Cancer Screening 1972 FIT - COLON CA SCREENING 1972 FLEX SIG - COLON CA SCREENING 1972 LIPID TESTING 1972 MAMMOGRAM 1972 PAP SMEAR 1972 HIV SCREENING 05/19/1987 HEPATITIS C SCREENING 05/14/1990 DTAP/TDAP/TD VACCINES (1 - Tdap) 05/19/1991 HEPATITIS B VACCINE (1 of 3 - 19+ 3-dose series) 05/19/1991 SCREENING FOR DIABETES 05/29/2020 PNEUMOCOCCAL VACCINE 50+ (1 of 1 - PCV) 2022 ZOSTER VACCINE (1 of 2) 2022 COVID-19 VACCINE (1 - season) 2023 INFLUENZA VACCINE (#1) 2023 2, 11/01/2020, 12/05/2019, Additional history exists DEPRESSION SCREENING 02/09/2024 HIB VACCINE Aged Out No longer eligi ble based on patient's age to complete this topic HPV VACCINE Aged Out No longer eligi ble based on patient's age to complete this topic MENINGOCOCCAL (Group B) VACCINE Aged Out No longer eligible based on patient's age to complete this topic MENINGOCOCCAL VACCINE Aged Out No jeremi redd eligible based on patient's age to complete this topic PNEUMOCOCCAL VACCINE Aged Out No long er eligible based on patient's age to complete this topic Goals Goal Patient Goal Type Associated Problems Recent Progress Patient-Stated? Author Mobility General No Beatriz Coóln, RN Note: Expected end date: 02/07/2021 The goal is to maintain or improve your mobility at the optimum level for you. Interventions: Care Teams Food Equipment Service Technician Relationship Specialty Start Date End Date Sandi Martinez MD [facility] [place] [address] PCP - General 09/06/20
--- OUTSIDE RECORDS SUMMARY | 2024-03-02 19:42 | XMS_ITS ---
Author Organization [facility] Address [address] [place] [address] Care Team Providers Care Ropeman Name Role Phone Kelsey Bernard Primary Care Provider [phone] REASON FOR VISIT extreme hypoglycemia Medications Medication SIG (Take, Route, Frequency, Duration) Notes Start Date End Date Status HYDROCODONE-IBUPROFEN 10 mg-200 mg 1 tab(s) orally every 4 hours 08/30/2023 Unknown GVOKE HYPOPEN TWO PACK 1 mg/0.2 mL as directed subcutaneously once for 90 days PRN for low blood sugar below 50 and symptomatic 08/30/2023 Unknown ALPRAZOLAM 0.5 mg for 23 Days Unknown HYDROCHLOROTHIAZIDE-LOSA RTAN 12.5 mg-100 mg TAKE 1 TABLET BY MOUTH EVERY DAY for 30 Days Unknown PREDNISONE 5 mg TAKE 1 TABLET BY BLANQUITA TH EVERY DAY for 30 Days Unknown OZEMPIC 2 mg/3 mL (0.25 mg or 0.5 mg dose) INJECT 0.5 MG ONE TIME PER WEEK for 28 Days Unknown LEFLUNOMIDE 20 mg for 90 Days Unknown EZETIMIBE 10 mg for 90 Days Un known UNITHROID 50 mcg (0.05 mg) for 30 Days Unknown FOLIC ACID 1 mg for 90 Days Un known Encounters Encounter Location Date Provider Diagnosis [facility] - Kelsey Bernard [address] [place] [address] 12/17/2023 Kelsey Bernard Plan Of Treatment No Information Progress Notes * Laila ZIMMERDOB: [birth year] (53 yo F)Acc No.[id number]:12/17/2023 Progress Notes Patient:?Laila ZIMMER Provider:?Kelsey Bernard MD :1970???Age:53 Y???Sex:Female D ate:12/17/2023 Phone: Address:[address], [place], [facility] Subjective: * Chief Complaints: * ???1. Extreme hypoglycemia. * Medical History:? * Medications:?Unknown UNITHRO ID 50 mcg (0.05 mg) tablet , Unknown FOLIC ACID 1 mg tablet , Unknown LEFLUNOMIDE 20 mg tablet , Unknown EZETIMIBE 10 mg tablet , Unknown OZEMPIC 2 mg/3 mL (0.25 mg or 0.5 mg dose) solution INJECT 0.5 MG ONE TIME PER WEEK , Unknown PREDNISONE 5 mg tablet TAKE 1 TABLET BY MOUTH EVERY DAY , Unknown ALPRAZOLAM 0.5 mg tablet , Unknown HYDROCHLOROTHIAZIDE-LOSARTAN 12.5 mg-100 mg tablet TAKE 1 TABLET BY MOUTH EVERY DAY , Unknown HYDROCODONE-IBUPROFEN 10 mg-200 mg tablet 1 tab(s) orally every 4 hours , Unknown GVOKE HYPOPEN TWO PACK 1 mg/0.2 mL solution as directed subcutaneously once PRN for low blood sugar below 50 and symptomatic Objective: * Vitals:? Assessment: Plan: * Treatment: * Billing Information: * Visit Code:? * Procedure Codes:? * Electronic signature of Ellis Bernard MD on 03/02/2024 at 07:41 PM GLOVE TURNER Sign off status: Pending * Provider:?Kelsey Bernard MD Date:? 4 Generated for Adrian lindsay/Sel[place]/Shaanitting on:?03/02/2024 07:41 PM GLOVE TURNER
--- OUTSIDE RECORDS SUMMARY | 2024-03-02 19:42 | XMS_ITS | Encounter Summary ---
Author Organization [facility] Address [address] [place] [address] Care Team Providers Care Loss Control Engineer Name Role Phone Pooja Hernández NP Primary Care Provider [phone] Reason for Visit * Reason Onset Date Comments Hydrocodone RX 02/29/2024 Encounter Details Date Type Department Care Team (Late st Contact Info) Description 02/29/2024 Telephone [facility] Rhe[facility]ology at [facility] [address] [place] [id number] Yuki Mckoy DO [address] [place], [place] [id number] Hydrocodone RX Social History Tobacco Use Types Packs/Day Years Used Date Smoking Tobacco: Never Smokeless Tobacco: Never AUDIT-C Answer Date Recorded Q1: How often [...] on file Legal Sex Female 4:23 PM AIR POLLUTION AUDITOR Gender Identity Not on file Sexual Orientation Not on file documented as of this encounter Miscellaneous Notes * Telephone Encounter - Yuki Mckoy DO - 02/29/2024 2:29 PM AIR POLLUTION AUDITOR Noted. POLLUTION AUDITOR * Telephone Encounter - Rose Zee - 02/29/2024 1:34 PM CST Pooja, the AIRPLANE NAVIGATOR from [facility], reached out to inform you about concerning issues regarding hydrocodone prescription for the patient. Ms. Patotn indicated that the pt appears to be over using the medication, which has prompted her to decide against issuing any further prescriptions for hydrocodone. If you have any question or require additional details, Ms Patton is available for a conversation and can be reached at [phone]. POLLUTION AUDITOR documented in this encounter Plan of Treatment Not on file documented as of this encounter Visit Diagnoses Not on filedocumented in this encounter Care Teams Loss Control Engineer Relationship Specialty Start Date End Date Pooja Hernández NP [address] [place] [address] PCP - General Nurse Practitioner 08/24/23 documented as of this encounter
--- OUTSIDE RECORDS SUMMARY | 2024-03-02 19:43 | XMS_ITS | CONTINUITY OF CARE DOCUMENT ---
Author Name harjinder grande Address Unknown Organization [facility] Address [address] [place] [address] Phone [phone] Care Team Providers Care Burial Agent Name Role Phone Corey ARANGO, Mary Beth Unavailable SILVANO ARANGO, RUNDA Unavailable SILVANO ARANGO, RUNDA Unavailable PROBLEMS Condition Status Date Provider Notes Syncope active Emelia Tucumcari Hyperlipidemia active Mary Beth Nicole MD HTN essential active Mary Beth Nicole MD Family History of Hypertension: completed - Mary Beth Nicole MD Family History of CVA or Stroke: completed - Mary Beth Nicole MD Family History of Hypertension: active Mary Beth Nicole MD Family History of CVA or Stroke: active Mary Beth Nicole MD Shortness of breath active Mary Beth Nicole MD Peripheral neuropathy active Mary Beth Carver Mitral regurgitation, mild active Mary Beth cain MD FAMILY HISTORY OF premature HEART DISEASE active Mary Beth Nicole MD Chest pain-type to be determined active Mary Beth Nicole MD Anxiety active Mary Beth Nicole MD Fibromyalgia active Mary Beth Nicole MD Syncope and collapse completed - Mary Beth Nciole MD ENCOUNTERS Date Type Provider Location Encounter Diag nosis 6 - 6 In-person encounter Office Visit Mary Beth Nicole MD [place] [facility] Family History of CVA or Stroke:Family History of Hypertension:HTN essentialHyperlipidemia 5 - 5 In-person encounter Office Visit Mary Beth Nicole MD [place] [facility] Family History of CVA or Stroke:Family History of Hypertension: 1 - 1 In-person encounter Office Visit Mary Beth Nicole MD [facility] Syncope and collapseFibromyalgiaAnxietyChest pain-type to be determinedFAMILY HISTORY OF premature HEART DISEASEMitral regurgitation, mildPeripheral neuropathyShortness of breath VITAL SIGNS Date Observation Value Provider Body Mass Index (Ratio) 32.45 kg/m2 Rex Nicole MD respiratory rate E&M 16 /min [facility] blood pressure, diastolic 93 mm[Hg] To [facility] blood pressure, systolic 149 mm[Hg] Ton [facility] pulse rate 67 /min [facility] oxygen saturation, oximetry 98 % [facility] weight E&M 195 [lb_av] [facility] height E&M 65 [in_i] [facility] temperature site temporal Katty Tank sley temperature E&M 96.4 [degF] Katty T[facility] [place] Body Mass Index (Ratio) 32.95 kg/m2 Rex Nicole MD blood pressure, resting Yes [facility] blood pressure, diastolic 89 mm[Hg[facility], [facility] 147 mm[Hg] Ton [facility] pulse rate 82 /min [facility] oxygen saturation, oximetry 98 % [facility] respiratory rate E&M 16 /min [facility] temperature site temporal [facility] weight E&M 198 [lb_av] [facility] height E&M 65 [in_i] [facility] temperature E&M 96.3 [degF] Katty T[facility] [place] ALLERGIES Allergy Name Onset Date Reaction Criticality Status FLEXERIL Low Criticality active RESULTS Date Observation Value Provider Reference Range Interpretation Location ferritin, serum 79 ng/mL [facility] 15-150 magnesium, serum 2.5 mg/dL [facility] 1.6-2.3 High B-12, serum 424 pg/mL [facility] 232-1245 hemoglobin A1C, blood, as % of total hemoglobin 5.9 % [facility] 4.8-5.6 High iron saturation percent, serum 18 % [facility] 15-55 iron, serum 82 ug/dL [facility] 27-159 iron binding capacity, unsaturated 383 ug/dL [facility] [phone]/05/1 iron binding capacity, total 465 ug/dL [facility] 250-450 High free thyroxine index 1.3 [facility] 1.2-4.9 triiodothyronine resin uptake 17 % [facility] 24-39 Low thyroxine, serum, total 7.5 ug/dL [facility] 4.5-12.0 thyroid stimulating hormone, serum 2.100 u[IU]/mL [facility] 0.450-4.500 lipoprotein, beta, serum, point, quantitative, calculated 176 mg/dL [facility] 0-99 High very low density lipoproteins 44 mg/dL [facility] 5-40 High HDL cholesterol, serum 43 mg/dL [facility] >39 triglyceride, serum, random 222 mg/dL [facility] 0-149 High cholesterol, serum 263 mg/dL [facility] 100-199 High basophil count, absolute 0.0 x10E3/uL [facility] 0.0-0.2 Eosinophil Absolute Count 0.3 X10E3/UL [facility] 0.0-0.4 monocyte count, blood, automated 0.6 X10E3/UL [facility] 0.1-0.9 2020/05/1 6 lymphocyte count, blood, automated 3.0 X10E3/UL [facility] 0.7-3.1 6 Absolute Neutrophils 6.2 X10E3/UL [facility] 1.4-7.0 6 basophils as percent of blood leukocytes 0 % [facility] Not Estab. 6 eosinophils as percent of blood leukocytes 3 % [facility] Not Estab. 6 monocytes as percent of blood leukocytes 6 % [facility] Not Estab. 6 lymphocytes as percent of blood leukocytes 30 % [facility] Not Estab. neutrophils as percent of blood leukocytes 61 % [facility] Not Estab. platelet count 424 X10E3/UL [facility] 443-086 5158/05/1 red blood cell distribution width 13.6 % [facility] 11.7-15.4 mean corpuscular hemoglobin concentration, RBC 32.4 G/DL [facility] 31.5-35.7 mean corpuscular hemoglobin, RBC 29.0 pg [facility] 26.6-33.0 mean corpuscular volume, RBC 89 fL [facility] 79-97 hematocrit, blood 43.2 % [facility] 34.0-46.6 hemoglobin, blood 14.0 g/dL [facility] 11.1-15.9 erythrocyte (RBC) count 4.83 X10E6/UL [facility] 3.77-5.28 leukocyte count, blood 10.1 X10E3/UL [facility] 3.4-10.8 alanine aminotransferase (SGPT), serum 15 1/L [facility] 0-32 aspartate aminotransferase (SGOT), serum 24 1/L [facility] 0-40 6 alkaline phosphatase, serum 61 1/L [facility] 39-117 bilirubin, serum, total 0.4 mg/dL [facility] 0.0-1.2 albumin/globulin ratio, serum 1.5 [facility] 1.2-2.2 6 globulin, serum 3.1 [facility] 1.5-4.5 6 albumin, serum 4.8 g/dL [facility] 3.8-4.8 6 protein, total, serum 7.9 g/dL [facility] 6.0-8.5 6 calcium, serum 10.5 mg/dL [facility] 8.7-10.2 High 6 carbon dioxide, venous blood 26 mmol/L [facility] 20-29 6 chloride, serum 104 mmol/L [facility] 96-106 6 potassium, serum 4.7 mmol/L [facility] 3.5-5.2 6 sodium, serum 146 mmol/L [facility] 134-144 High 6 urea nitrogen/creatinine ratio, serum 14 [facility] 9-23 6 eGFR if 64 mL/min/{1 .73_m2} [facility] >59 6 eGFR if not 56 mL/min/{1 .73_m2} [facility] >59 Low 6 creatinine, serum 1.17 mg/dL [facility] 0.57-1.00 High 6 urea nitrogen, blood 16 mg/dL [facility] 6-24 6 blood glucose, random 130 mg/dL [facility] 65-99 High HISTORY OF MEDICATION USE Medication Status Instructions Dates Provider Indications Com ments LOSARTAN-HCTZ 100-12.5 MG TAB active TAKE 1 TABLET BY MOUTH EVERY DAY Addison Quezada ATORVASTATIN CALCIUM 20 MG ORAL TABLET active one tab daily Mary Beth Nicole MD ZETIA 10 MG ORAL TABLET active ONE TAB. DAILY Mary Beth Nicole MD TOPIRAMATE 25 MG ORAL TABLET active TAKE 2 TABLETS BY MOUTH TWICE A DAY [facility] #360, 90 days supply, Prescribed by TERRENCE MADSEN, Filled 04/02/2019 LEVOTHYROXINE SODIUM 50 MCG ORAL TABLET active TAKE 1 TABLET BY MOUTH EVERY DAY [facility] #90, 90 days supply, Prescribed by TERRENCE MADSEN, Filled 05/06/2019 ATORVASTATIN 20 MG TABLET active TAKE 1 TABLET BY MOUTH EVERY DAY Add[facility] Que[facility] #90, 90 days supply, Prescribed by TERRENCE MADSEN, Filled 05/08/2019 CLOBETASOL PROPIONATE 0.05 % EXTERNAL OINTMENT active APPLY THIN COAT TO AFFECTED AREA TWICE A DAY UNTIL IRRITATION RESOLVED, THEN NEEDED [facility] #30, 15 days supply, Prescribed by CHRIS MARCOS, Filled 05/22/2019 ALPRAZOLAM 0.25 MG ORAL TABLET active TAKE 1 TABLET BY MOUTH THREE TIMES A DAY NEEDED [facility] #90, 30 days supply, Prescribed by TERRENCE MADSEN, Filled 05/31/2019 HYDROCODONE-ACETAMINOP HEN TABLET active as needed for pain Mary Beth Nicole MD MEDROXYPROGESTERONE ACETATE 5 MG ORAL TABLET active one tab daily Mary Beth Nicole MD ESTRADIOL 1 MG ORAL TABLET active one tab daily Mary Beth Nicole MD SOCIAL HISTORY Date Observation Value Provider social history E&M S moking History: Karla jacob has never smoked. Mary Beth Nicole MD social history reviewed E&M reviewed - no changes required Mary Beth Nicole MD smoking status Never smoker [facility] social history E&M S moking History: Karla jacob has never smoked. Mary Beth Nicole MD social history reviewed E&M reviewed - no changes required Mary Beth Nicole MD smoking status Never smoker [facility] social history E&M S moking History: Karla jacob has never smoked. Mary Beth Nicole MD smoking status Never smoker Mary Beth Nicole MD number of grandchildren Mary Beth Nicole MD T armand Nicole MD social history reviewed E&M reviewed - no changes required Mary Beth Nicole MD FAMILY HISTORY Family Member Condition Father Family History of Co ronary Artery Disease: Father Family History of Hy pertension: Father Family History of Di abetes: Father Family History of CV A or Stroke: Mother Family History of Hy pertension: Mother Family History of Di abetes: Mother Family History of CV A or Stroke: INSURANCE PROVIDERS Payer name Policy type / Coverage type Lalita red constitution party ID [id number] 1 ADVANCE DIRECTIVES Name Date DISCUSSED - NO DECISION MADE TREATMENT PLAN Date Name Performer Cardiology Mary Beth Nicole MD Cardiology Mary Beth Nicole MD Cardiology Mary Beth Nicole MD Cardiology Mary Beth Nicole MD Cardiology Mary Beth Nicole MD Cardiology Mary Beth Nicole MD Cardiology Mary Beth Nicole MD Cardiology Mary Beth Nicole MD Cardiology Mary Beth Nicole MD Cardiology Mary Beth Nicole MD TeleHealth, needs re ga stress and in person f/u after testing Mary Beth Nicole MD TeleHealth, needs re ga stress and in person f/u after testing Mary Beth Nicole MD TeleHealth, needs re ga stress and in person f/u after testing Mary Beth Nicole MD TeleHealth, needs re ga stress and in person f/u after testing Mary Beth Nicole MD TeleHealth, needs re ga stress and in person f/u after testing: p t may end up needing a loop recorder if we don't see any arrhythmia on her telesentry monitor. Mary Beth Nicole MD Date Name Sleep Study Home Vitamin D, 25-Hydrox y VITAMIN B12/FOLATE, SERUM PANEL MAGNESIUM IRON AND TOTAL IRON BINDING CAPACITY FERRITIN CBC (INCLUDES DIFF/P LT) HEMOGLOBIN A1c TSH, free T4, total T3 LIPID PANEL COMPREHENSIVE METABO LIC PANEL, W/EGFR Stress Regadenoson Complete Echo HISTORY OF PROCEDURES Procedure Date Procedure Name Provider Procedure Notes S tatus Regadenoson, 4 units Mary Beth Nicole MD completed Cardiolite, 2 units Mary Beth Nicole MD completed SPECT Images Mary Beth Nicole MD complet ed Stress EKG Mary Beth Nicole MD completed EKG Mary Beth Nicole MD completed Event Monitor Mary Beth Nicole MD comple tomer
--- OUTSIDE RECORDS SUMMARY | 2024-03-02 19:43 | XMS_ITS | Patient Health Summary ---
Author Organization [facility] Address [address] [place] [address] Care Team Providers Care Manager Bar Name Role Phone Sandi Martinez MD Primary Care Provider [phone] Note from [facility],non-owned Affiliates and Associated Physician Practices is amultiple site organization consisting of ambulatory clinics and hospital sitesin [place], [place], [place] and [place]. This disclosure is being madepursuant to the Care Everywhere program and may not contain all information available regarding this patient. Last updated 17.[facility] Allergies * Ciprofloxacin(Nausea and/or Vomiting) -Medium Criticality * Cyclobenzaprine(Rash) -Medium Criticality Medications * Be aware that medications may not be up to date on this document. Alwaysverify current medications with the patient. * predniSONE (DELTASONE) 10 MG tablet(Started 05/29/2020) 3 tabs BID x4 days, 2 tabs BID x3 days, 1 tab BID x3 days then stop Active Problems No known active problems Social [...] Mass Index 34.57 08/14/2020 3:09 PM CDT Procedures * XR THORACIC SPINE 2VW(Performed 09/25/2020) Performed for Back pain, unspecified back location, unspecified back pain laterality, unspecified chronicity * XR LUMBAR SPINE 2 OR 3VW(Performed 09/25/2020) Performed for Back pain, unspecified back location, unspecified back pain laterality, unspecified chronicity * XR SHOULDER RIGHT 2VW OR MORE(Performed 08/14/2020) Performed for Pain of both shoulder joints * XR SHOULDER LEFT 2VW OR MORE(Performed 08/14/2020) Performed for Pain of both shoulder joints * XR CERVICAL SPINE 4 OR 5VW(Performed 05/29/2020) Performed for Neck pain Results * XR THORACIC SPINE 2VW (09/25/2020 3:33 PM CDT) Anatomical Region Laterality Modality Spine Radiographic Melvi ging 09/25/2020 3:36 PM CDT Impressions 09/25/2020 3:37 PM CDT IMPRESSION: Normal This report was electronically signed by JOS BROWNLEE MD ??on 09/25/2020 3:37 PM . Narrative 09/25/2020 3:37 PM CDT Exam: ??XR THORACIC SPINE 2VW History: ??M54.9: Back pain, unspecified back location, unspecified back pain laterality, unspecified chronicity Comparison: None. Findings: There is no fracture or subluxation. The disc spaces are normal. Right upper quadrant clips are noted. Procedure Note Jos Brownlee MD - 09/25/2020 Exam: XR THORACIC SPINE 2VW History: M54.9: Back pain, unspecified back location, unspecified back pain laterality, unspecified chronicity Comparison: None. Findings: There is no fracture or subluxation. The disc spaces are normal. Right upper quadrant clips are noted. IMPRESSION: Normal This report was electronically signed by JOS BROWNLEE MD on09/25/2020 3:37 PM . [facility] * XR LUMBAR SPINE 2 OR 3VW (09/25/2020 3:33 PM CDT) Anatomical Region Laterality Modality Spine Radiographic Melvi ging 09/25/2020 3:38 PM CDT Impressions 09/25/2020 3:40 PM CDT IMPRESSION: No significant degenerative change. This report was electronically signed by JOS BROWNLEE MD ??on 09/25/2020 3:40 PM . Narrative 09/25/2020 3:40 PM CDT Exam: ??XR LUMBAR SPINE 2 VW History: ??M54.9: Back pain, unspecified back location, unspecified back pain laterality, unspecified chronicity Comparison: None. Findings: The lordosis is normal. There is no fracture or subluxation. The lowest thoracic type vertebral body bearing hypoplastic ribs is considered T12 for the purpose of this report. There are 4 additional lumbar type vertebral bodies below this designated L1-L4, and a transitional vertebra is present at the lumbosacral junction which is considered a partly sacralized L5. There is a small disc space at L5-S1. The other disc spaces are normal. Small anterior osteophytes are noted at the L1 and L5 superior endplates. Procedure Note Jos Brownlee MD - 09/25/2020 Exam: XR LUMBAR SPINE 2 VW History: M54.9: Back pain, unspecified back location, unspecified back pain laterality, unspecified chronicity Comparison: None. Findings: The lordosis is normal. There is no fracture or subluxation. The lowest thoracic type vertebral body bearing hypoplastic ribs is considered T12 for the purpose of this report. There are 4 additional lumbar type vertebral bodies below this designated L1-L4, and a transitionalvertebra is present at the lumbosacral junction which is considered a partly sacralized L5. There is a small disc space at L5-S1. The other discspaces are normal. Small anterior osteophytes are noted at the L1 and T1xayfhylz endplates. IMPRESSION: No significant degenerative change. This report was electronically signed by JOS BROWNLEE MD on09/25/2020 3:40 PM . [facility] * XR SHOULDER RIGHT 2VW OR MORE (08/14/2020 3:56 PM CDT) Anatomical Region Laterality Modality Upper Extremity Radiographic Melvi ging 08/14/2020 3:56 PM CDT Impressions 08/14/2020 4:03 PM CDT Impression: Normal radiographs of the bilateral shoulders. Report dictated by Junior Morales MD (residential tech). Dr. JOS Shah MD have personally reviewed and interpreted this examination/study. This report was electronically signed by JOS BROWNLEE MD ??on 08/14/2020 4:03 PM . Narrative 08/14/2020 4:03 PM CDT EXAMINATION: XR SHOULDER RIGHT 3 views, XR SHOULDER LEFT ??3 views HISTORY: M25.511: Pain of both shoulder joints M25.512: Pain of both shoulder joints COMPARISON: No prior study is available for comparison. FINDINGS: Right shoulder: No acute fracture or dislocation. The glenohumeral and acromioclavicular joints are maintained. No soft tissue abnormality. Left shoulder: No acute fracture or dislocation. The acromioclavicular and glenohumeral joints are seen. There is a small spur at the lateral aspect of the acromion process. No soft tissue abnormality. Procedure Note Jos Brownlee MD - 08/14/2020 EXAMINATION: XR SHOULDER RIGHT 3 views, XR SHOULDER LEFT 3 views HISTORY: M25.511: Pain of both shoulder joints M25.512: Pain of both shoulder joints COMPARISON: No prior study is available for comparison. FINDINGS: Right shoulder: No acute fracture or dislocation. The glenohumeral and acromioclavicular joints are maintained. No soft tissue abnormality. Left shoulder: No acute fracture or dislocation. The acromioclavicular and glenohumeral joints are seen. There is a small spur at the lateral aspect of the acromion process. No soft tissue abnormality. Impression: Normal radiographs of the bilateral shoulders. Report dictated by Junior Morales MD (residential tech). Dr. JOS Shah MD have personally reviewed and interpreted this examination/study. This report was electronically signed by JOS BROWNLEE MD on08/14/2020 4:03 PM . [facility] * XR SHOULDER LEFT 2VW OR MORE (08/14/2020 3:55 PM CDT) Anatomical Region Laterality Modality Upper Extremity Radiographic Melvi ging 08/14/2020 3:56 PM CDT Impressions 08/14/2020 4:03 PM CDT Impression: Normal radiographs of the bilateral shoulders. Report dictated by Junior Morales MD (residential tech). Dr. JOS Shah MD have personally reviewed and interpreted this examination/study. This report was electronically signed by JOS BROWNLEE MD ??on 08/14/2020 4:03 PM . Narrative 08/14/2020 4:03 PM CDT EXAMINATION: XR SHOULDER RIGHT 3 views, XR SHOULDER LEFT ??3 views HISTORY: M25.511: Pain of both shoulder joints M25.512: Pain of both shoulder joints COMPARISON: No prior study is available for comparison. FINDINGS: Right shoulder: No acute fracture or dislocation. The glenohumeral and acromioclavicular joints are maintained. No soft tissue abnormality. Left shoulder: No acute fracture or dislocation. The acromioclavicular and glenohumeral joints are seen. There is a small spur at the lateral aspect of the acromion process. No soft tissue abnormality. Procedure Note Jos Brownlee MD - 08/14/2020 EXAMINATION: XR SHOULDER RIGHT 3 views, XR SHOULDER LEFT 3 views HISTORY: M25.511: Pain of both shoulder joints M25.512: Pain of both shoulder joints COMPARISON: No prior study is available for comparison. FINDINGS: Right shoulder: No acute fracture or dislocation. The glenohumeral and acromioclavicular joints are maintained. No soft tissue abnormality. Left shoulder: No acute fracture or dislocation. The acromioclavicular and glenohumeral joints are seen. There is a small spur at the lateral aspect of the acromion process. No soft tissue abnormality. Impression: Normal radiographs of the bilateral shoulders. Report dictated by Junior Morales MD (residential tech). Dr. JOS Shah MD have personally reviewed and interpreted this examination/study. This report was electronically signed by JOS BROWNLEE MD on08/14/2020 4:03 PM . [facility] * XR CERVICAL SPINE 4 OR 5VW (05/29/2020 2:53 PM CDT) Anatomical Region Laterality Modality Spine Radiographic Melvi ging 05/29/2020 3:05 PM CDT Impressions 05/29/2020 3:19 PM CDT Impression: No acute osseous abnormality. Dictated by Kelsey Carvalho DO (residential treatment staff). IDr. JOS MD have personally reviewed and interpreted this examination/study. This report was electronically signed by JOS BROWNLEE MD ??on 05/29/2020 3:19 PM . Narrative 05/29/2020 3:19 PM CDT Exam: XR CERVICAL SPINE 4VW Date: 05/29/2020 2:53 PM History: M54.2: Neck pain Findings: There is straightening of the usual cervical lordosis. There is no subluxation in neutral positioning or with flexion or extension. There is no acute fracture. C7 is partially obscured by the superimposed shoulders. Mild multilevel degenerative changes are seen. There is anterior spurring, greatest at C6-C7. There is no prevertebral soft tissue swelling. There is extensive erosion of the crown of a left mandibular molar. Procedure Note Jos Brownlee MD - 05/29/2020 Exam: XR CERVICAL SPINE 4VW Date: 05/29/2020 2:53 PM History: M54.2: Neck pain Findings: There is straightening of the usual cervical lordosis. There is no subluxation in neutral positioning or with flexion or extension. Thereis no acute fracture. C7 is partially obscured by the superimposedshoulders. Mild multilevel degenerative changes are seen. There is anteriorspurring, greatest at C6-C7. There is no prevertebral soft tissue swelling. Thereis extensive erosion of the crown of a left mandibular molar. Impression: No acute osseous abnormality. Dictated by Kelsey Carvalho DO (residential treatment staff). I, Dr. JOS BROWNLEE MD have personally reviewed and interpreted this examination/study. This report was electronically signed by JOS BROWNLEE MD on05/29/2020 3:19 PM . [facility] Care Teams Manager Bar Relationship Specialty Start Date End Date Sandi Martinez MD [facility] [place] [address] PCP - General 09/06/20
== END 2024-02-29 15:18 | disposition home or self-care (01) ==
LOC: ANHBWCLAB 15:18
PROVIDERS: PCP Nurse Practitioner Adult Health; Visit Provider Nurse Practitioner Adult Health
DX: Z79.899 Other long term (current) drug therapy (principal)
CPT/HCPCS: 80299

== ENCOUNTER 2024-10-16 12:46 | Outpatient (CLI) | payer BC, SELFPAY ==
--- NOTE | ~2024-10-16 | US_ITS ---
EXAMINATION: US thyroid DATE: 10/16/2024 13:00 INDICATION: Nontoxic thyroid nodule TECHNIQUE: Multiple ultrasound images of the thyroid were obtained. COMPARISON: None. FINDINGS: The right thyroid lobe measures 4.7 x 2.0 x 1.6 cm. The left thyroid lobe measures 6.0 x 1.6 x 2.1 cm. And 1.3 cm solid hypoechoic nodule with ill- defined margins and without echogenic foci in the inferior right thyroid lobe. (TI-RADS 4, moderately suspicious , FNA if >=1.5 cm, annual followup is >=1 cm). There is a 2.8 cm Ti RADS 4 nodule with similar imaging features in the left thyroid lobe. IMPRESSION: 1. Bilateral TI RADS 4 thyroid nodules measuring 2.8 cm on the left and 1.3 cm on the right. The former meets criteria for ultrasound guided biopsy which would be recommended. Reviewed, dictated and finalized at location A. IMPRESSION: 1. Bilateral TI RADS 4 thyroid nodules measuring 2.8 cm on the left and 1.3 cm on the right. The former meets criteria for ultrasound guided biopsy which woul d be recommended.
== END 2024-10-16 12:47 | disposition home or self-care (01) ==
LOC: GOSHIMG 12:46
PROVIDERS: PCP Internal Medicine Endocrinology, Diabetes & Metabolism; Visit Provider Internal Medicine Endocrinology, Diabetes & Metabolism
DX: E04.2 Nontoxic multinodular goiter (principal)
CPT/HCPCS: 76536